=== PATIENT | male | born 1960 | race Caucasian/White ===

== ENCOUNTER 2019-12-29 17:24 | Emergency (ER) | payer OTHER ==
[~2019-12-29] VITALS: Ht 167.6 cm; Wt 73.0 kg
--- NOTE | 2019-12-29 17:26 | NUR ---
[id number], ETOH, DRINKING BACARDI AND BEER AT THE PARKING LOT, TO ER BED 11, HOOKED TO MONITOR, WARM BLANKET PROVIDED, DARNELL HOLLINS AT BEDSIDE
[2019-12-29 17:58] LABS: BASOPHILS % (AUTO) 0.2 % (0.0-2.0); EOSINOPHILS % (AUTO) 20.2 % (0.0-6.0); HEMATOCRIT 41 % (39-51); HEMOGLOBIN 13.4 g/dL (13.5-17.5); LYMPHOCYTES # (AUTO) 1.4 /CMM (0.8-4.8); MEAN CORPUSCULAR HGB CONC 33 g/dl (31.0-36.0); MEAN CORPUSCULAR VOLUME 103 fL (80-96); MONOCYTES # (AUTO) 0.7 /CMM (0.1-1.30); MONOCYTES % (AUTO) 7.9 % (2.0-12.0); NEUTROPHILS # (AUTO) 5.2 /CMM (1.8-8.9); NEUTROPHILS % (AUTO) 56.7 % (43.0-81.0); PLATELET COUNT (AUTO) 175 /CMM (150-450); RED BLOOD CELL COUNT(AUTO) 3.99 MIL/uL (4.5-6.0); WHITE BLOOD COUNT (AUTO) 9.2 K/uL (4.3-11.0)
[2019-12-29 18:05] LABS: CALCIUM, SERUM 8.9 mg/dL (8.5-10.1); CARBON DIOXIDE 23 mmol/L (21-32); CHLORIDE 107 mmol/L (98-107); CREATININE 0.9 mg/dL (0.6-1.3); GLUCOSE 104 mg/dL (74-106); POTASSIUM 4.6 mmol/L (3.5-5.1); SODIUM SERUM 142 mmol/L (136-145); UREA NITROGEN, BLOOD 16 mg/dL (7-18)
[2019-12-29 18:19] LABS: ALANINE AMINOTRANSFERASE 11 U/L (12-78); ALBUMIN 3.5 g/dL (3.4-5.0); ALCOHOL, BLOOD 114 mg/dL (0-0); ALKALINE PHOSPHATASE 94 U/L (46-116); ASPARTATE AMINOTRANSFERASE 15 U/L (15-37); BILIRUBIN,TOTAL 0.2 mg/dL (0.2-1.0); TOTAL PROTEIN, SERUM 7.3 g/dL (6.4-8.2)
[2019-12-29 18:20] LABS: SALICYLATE < 2.8 mg/dL (2.8-20.0)
--- NOTE | 2019-12-29 19:00 | NUR ---
PATIENT NOT ABLE TO PROVIDE URINE SAMPLE AT THIS TIME, REFUSED STRAIGHT CATHETER, MADE MD BENZ Addendum: 12/29/19 at 1908 by DAISY PATIENT NOT ABLE TO PROVIDE URINE SAMPLE AT THIS TIME, REFUSED STRAIGHT CATHETER, MADE DARNELL BENZ
--- NOTE | 2019-12-29 19:09 | NUR ---
REPORT GIVEN TO RUSLAN BILLINGSLEY FOR TAYL[facility]
--- NOTE | 2019-12-29 19:12 | NUR ---
PATIENT UNABLE TO PROVIDE URINE AT THIS TIME. DARNELL HERNANDEZ NOTIFIED.
--- NOTE | 2019-12-29 19:25 | NUR ---
PT IS ASLEEP. EASILY AROUSABLE THROUGH TACTILE AND VERBAL STIMULI. BREATHING EVENLY AND UNLABORED ON ROOM AIR. CONNECTED TO MONITOR. CALL LIGHT WITHIN REACH. WILL CONTINUE TO MONITOR.
[2019-12-29 19:42] LABS: EOSINOPHILS % (MANUAL) 15 % (0-4); LYMPHOCYTES % (MANUAL) 14 % (16-48); MONOCYTES % (MANUAL) 10 % (0-11.0); NEUTROPHILS % (MANUAL) 61 (42-76)
--- NOTE | 2019-12-29 21:05 | NUR ---
ROSELINE HOLLINS TALKING TO CRISTAL (SHAKER PLATE OPERATOR FOR [facility]).
--- NOTE | 2019-12-29 21:16 | NUR ---
REPORT GIVEN TO [facility] STAFF (OLAF).
--- NOTE | 2019-12-29 21:31 | NUR ---
REPORT GIVEN TO KURT FROM [facility].
--- NOTE | 2019-12-29 21:42 | NUR ---
[facility] ETA 3044
[2019-12-30 00:06] VITALS: BP 119/70
== END 2019-12-30 00:06 | disposition home or self-care (01) ==
LOC: ER 17:27
DX: F10.129 Alcohol abuse with intoxication, unspecified (principal); R41.82 Altered mental status, unspecified; Y90.5 Blood alcohol level of 100-119 mg/100 ml
CPT/HCPCS: 36415; 70450; 80048; 80076; 80307; 80329; 82962; 85025; 99285; G0480

== ENCOUNTER 2020-01-03 21:39 | Inpatient (IN) | payer OTHER ==
[~2020-01-03] VITALS: Ht 165.1 cm; Wt 73.0 kg
[2020-01-03] MEDS ORDERED: IV NS 0.9% 1,000 ML BAG IV ONE (22:00)
[2020-01-03 22:21] LABS: APPEARANCE,URINE Clear (CLEAR); BILIRUBIN,URINE Negative (NEGATIVE); BLOOD, URINE Negative Ery/uL (NEGATIVE); COLOR,URINE Yellow (YELLOW); KETONES,URINE Negative (NEGATIVE); LEUKOCYTE ESTERASE ,URINE Negative (NEGATIVE); NITRITE, URINE Negative (NEGATIVE); PH,URINE 5.5 (5.0-8.0); PROTEIN,URINE Negative (NEGATIVE); UGLUCOSE Negative (NEGATIVE); UROBILINOGEN,URINE 0.2 EU/dL (0.2)
[2020-01-03 23:16] LABS: RED BLOOD CELL COUNT(AUTO) 3.65 MIL/uL (4.5-6.0)
[2020-01-03 23:23] LABS: BASOPHILS % (AUTO) 0.4 % (0.0-2.0); EOSINOPHILS % (AUTO) 4.4 % (0.0-6.0); HEMATOCRIT 36 % (39-51); HEMOGLOBIN 12.4 g/dL (13.5-17.5); LYMPHOCYTES # (AUTO) 0.7 /CMM (0.8-4.8); LYMPHOCYTES % (AUTO) 6.1 % (20.0-44.0); MEAN CORPUSCULAR HGB CONC 34 g/dl (31.0-36.0); MEAN CORPUSCULAR VOLUME 99 fL (80-96); MONOCYTES # (AUTO) 0.8 /CMM (0.1-1.30); MONOCYTES % (AUTO) 7.3 % (2.0-12.0); NEUTROPHILS % (AUTO) 81.8 % (43.0-81.0); PLATELET COUNT (AUTO) 245 /CMM (150-450)
[2020-01-03 23:25] LABS: CALCIUM, SERUM 9.2 mg/dL (8.5-10.1); CARBON DIOXIDE 29 mmol/L (21-32); CHLORIDE 104 mmol/L (98-107); CREATININE 1.1 mg/dL (0.6-1.3); GLUCOSE 137 mg/dL (74-106); POTASSIUM 4.4 mmol/L (3.5-5.1); SODIUM SERUM 140 mmol/L (136-145); UREA NITROGEN, BLOOD 14 mg/dL (7-18)
[2020-01-03 23:30] LABS: ALANINE AMINOTRANSFERASE 14 U/L (12-78); ALBUMIN 3.5 g/dL (3.4-5.0); ALKALINE PHOSPHATASE 93 U/L (46-116); ASPARTATE AMINOTRANSFERASE 14 U/L (15-37); BILIRUBIN,DIRECT 0.1 mg/dL (0.0-0.2); BILIRUBIN,TOTAL 0.2 mg/dL (0.2-1.0); TOTAL PROTEIN, SERUM 7.6 g/dL (6.4-8.2)
--- NOTE | 2020-01-03 23:36 | NUR ---
PATIENT CAME TO ER BED 9 C/O FEVER. PT WAS BIB RA FROM [facility]. PT HAS A TEMPERATURE OF 99.9 AT ARRIVAL. AAOX2, UNABLE TO VERIFY TIME AND PLACE. NO SOB. BREATHING EVENLY AND UNLABORED. CONNECTED TO MONITOR
--- NOTE | 2020-01-04 00:57 | NUR ---
SBRT GIVEN TO POOJA BILLINGSLEY AT [facility].
--- NOTE | 2020-01-04 01:21 | NUR ---
[facility] ETA 0900.
--- NOTE | 2020-01-04 01:26 | NUR ---
[facility] STAFF GENIE CALLED BACK AND STATES THEY ARE UNABLE TO ACCEPT PT BACK UNTIL SHE IS ABLE TO SPEAK TO HER EDITOR AT [facility]. GENIE MADE AWARE OF PT MEDICALLY CLEARED AND STABLE FOR DISCHARGE.
--- NOTE | 2020-01-04 01:27 | NUR ---
[facility] , NO ANSWER.
--- NOTE | 2020-01-04 01:50 | NUR ---
PATIENT IS SLEEPING. BREATHING EVENLY AND UNLABORED ON ROOM AIR. EASILY AROUSABLE. VSS. CONNECTED TO MONITOR. SITTER AT BEDSIDE.
--- NOTE | 2020-01-04 03:18 | NUR ---
PATIENT IS ASLEEP. EASILY AROUSABLE THROUGH TACTILE AND VERBAL STIMULI. BREATHING EVENLY AND UNLABORED ON ROOM AIR. CONNECTED TO MONITOR. SITTER AT BEDSIDE.
--- NOTE | 2020-01-04 05:19 | NUR ---
PATIENT IS AWAKE, WATCHING TELEVISION. SITTER AT BEDSIDE TALKING WITH PATIENT.
--- NOTE | 2020-01-04 05:20 | NUR ---
[facility] @ , NO ANSWER.
--- NOTE | 2020-01-04 07:18 | NUR ---
ASSESSED PT ON BED AWAKE, AAOX3, NOT IN RESPIRATORY DISTRESS, V/S STABLE, KEPT RESTED AND COMFORTABLE, WILL CONTINUE TO MONITOR.
--- NOTE | 2020-01-04 07:56 | NUR ---
FOOD TRAY PROVIDED.
[2020-01-04] MEDS ORDERED: ACET-868 PO (08:51)
[2020-01-04] MEDS ORDERED: HALO5TAB8 PO (08:51)
[2020-01-04] MEDS ORDERED: LEVE250T2 PO (08:51)
[2020-01-04] MEDS ORDERED: ALPR0.5T PO (08:51)
[2020-01-04] MEDS ORDERED: DIPH25CA83 PO (08:51)
[2020-01-04] MEDS ORDERED: QUET25TA PO (08:51)
[2020-01-04] MEDS ORDERED: MULT-447 PO (08:51)
[2020-01-04] MEDS ORDERED: CHLO25TA2 PO (08:51)
[2020-01-04] MEDS ORDERED: DIVA500T4 PO (08:51)
[2020-01-04] MEDS ORDERED: THIA100T70 PO (08:51)
[2020-01-04] MEDS ORDERED: FOLI0.8T PO (08:51)
[2020-01-04] MEDS ORDERED: ONDA8TAB6 PO (08:51)
[2020-01-04] MEDS ORDERED: HALO5AMP2 IM (08:51)
[2020-01-04] MEDS ORDERED: CLOT15CR63 TP (08:51)
[2020-01-04] MEDS ORDERED: LORA-259 PO (08:53)
[2020-01-04] MEDS ORDERED: LEVO500T75 PO (08:53)
--- NOTE | 2020-01-04 09:01 | NUR ---
PAGED [facility].
--- NOTE | 2020-01-04 09:04 | NUR ---
nasal, oral, and throat swabs collected and sent to lab
--- NOTE | 2020-01-04 09:49 | NUR ---
IV LINE ESTABLISHED, L AC. G18
--- NOTE | 2020-01-04 10:50 | NUR ---
REPORT GIVEN TO JOSE CRUZ PALMER FOR TAYL[facility], PT IS ON ISOLATION.
--- NOTE | 2020-01-04 10:52 | NUR ---
NURSING SUP GAVE M/S BED 202.
--- NOTE | 2020-01-04 11:08 | NUR ---
PT IS WHEELED TO CT SCAN VIA [facility].
[2020-01-04] MEDS ORDERED: ZOLPIDEM TARTRATE 5 MG TABLET PO PRN (11:30)
[2020-01-04] MEDS ORDERED: CLOTRIMAZOLE 1% CREAM 24 GM TUBE TP PRN (11:30)
[2020-01-04] MEDS ORDERED: MAGNESIUM HYDROXIDE 30 ML UDC PO PRN (11:30)
[2020-01-04] MEDS ORDERED: ACETAMINOPHEN 325 MG TABLET PO PRN (11:30)
[2020-01-04] MEDS ORDERED: diphenhydrAMINE HCL 25 MG CAPSULE PO PRN (11:30)
[2020-01-04] MEDS ORDERED: ONDANSETRON HCL/PF 4 MG/2 ML VIAL IVP PRN (11:30)
[2020-01-04] MEDS ORDERED: HYDROCODONE/APAP 5/325MG 1 EACH TABLET PO PRN (11:30)
[2020-01-04] MEDS ORDERED: MAG HYDROX/AL HYDROX/SIMETH 30 ML UDC PO PRN (11:30)
[2020-01-04] MEDS ORDERED: CHLO25CA10 PO (11:43)
--- NOTE | 2020-01-04 11:45 | NUR ---
MS/RN NOTE THE PATIENT IS RECEIVED ON A GURNEY AND WEARING A MASK. THE PATIENT IS TRANSFERRED FROM A GURNEY TO BED. PATIENT IS ALERT AND ORIENTED X1. IN ROOM AIR AND DENIES SOB. RESPIRATION REGULAR AND UNLABORED. DENIES PAIN. THE PATIENT IN NO APPARENT DISTRESS. LAC G 18 PATENT AND SALINE LOCKED. ROOM ORIENTATION PROVIDED. BED LOW AND LOCKED. SIDE RAILS UP X3. CALL LIGHT WITHIN REACH. ISOLATION PRECAUTIONS DONE. WILL CONTINUE TO MONITOR.
[2020-01-04 12:00] VITALS: BP 133/78
[2020-01-04] MEDS: ALPRAZOLAM 0.5 MG TABLET PO SCH ×2 (12:28→18:09)
[2020-01-04] MEDS: MULTIVITAMINS,THERAGRAN 1 UDTAB TABLET PO SCH (12:28)
[2020-01-04] MEDS: FOLIC ACID 1 MG TABLET PO SCH (12:28)
[2020-01-04] MEDS: THIAMINE HCL 100 MG TABLET PO SCH (12:28)
[2020-01-04] MEDS: DIVALPROEX SODIUM 500 MG TABLET.DR PO SCH ×2 (12:28→21:16)
--- NOTE | 2020-01-04 14:20 | NUR ---
rn notes Staff nurse heard negative pressure room alarm going off. when checked, patient was out of the room. instructed the patient to go back inside but patient seems confused. Primary nurse Lou, with appropriate PPE, assisted patient back to the room.
--- NOTE | 2020-01-04 14:30 | NUR ---
MS/RN NOTE ASSISTED THE PATIENT TO GET BACK IN HIS ROOM AND BED AFTER WEARING MY PPE. OFFERED MY ASSISTANCE TO THE PATIENT BUT THE PATIENT COULD NOT REMEMBER WHY DID HE GOT OUT OF BED AND WHAT DID HE WANT. REMINDED THE PATIENT SAFETY AND ISOLATION MEASURES, ENCOURAGED HIM TO PRESS THE CALL LIGHT FOR ASSISTANCE. THE CALL LIGHT WITHIN REACH. WILL CONTINUE TO MONITOR.
[2020-01-04 15:00] VITALS: BP 135/80
--- NOTE | 2020-01-04 16:05 | NUR ---
MS/RN NOTE RECEIVED WOUND CONSULT ORDER FROM ROSE SOTELO. NOTED AND CARRIED OUT.
--- NOTE | 2020-01-04 16:28 | NUR ---
RN NOTE HEARED NEGATIVE PRESSURE ROOM ALARM RINGING. CHECKED IMMEDIATELY AND NOTED THE PATIENT OUT FROM THE ROOM, STANDING IN FROM OF HIS DOOR IN THE HALLWAY. INSTRUCTED THE PATIENT TO GO BACK INSIDE THE ROOM. HOWEVER, THE PATIENT IS CONFUSED AND WAS ABLE TO FOLLOW THE GIVEN INSTRUCTIONS AFTER REPEATING IT FEW TIMES. RIGHT AFTER I WORE PPE AND WENT TO THE PATIENT`S ROOM TO ASSIST THE PATIENT TO SAFETY GET IN BED. UPON ASKING THE PATIENT DID NOT REMEMBER WHAT DID HE WANT WHAT WAS THE REASON FOR GETTING OUT FROM THE ROOM. CALL LIGHT STILL WITHIN REACH. INSTRUCTED THE PATIENT TO PRESS THE CALL LIGHT FOR ASSISTANCE AND NOT TO GET OUT OF BED. THE PATIENT VERBALIZED UNDERSTANDING BUT STILL NOTED TO BE CONFUSED.
[2020-01-04] MEDS ORDERED: Medication Not On Formulary EA (Chlorthalidone 25 MG) PO SCH (17:00)
[2020-01-04] MEDS: LEVETIRACETAM (250 MG) 250 MG TABLET PO SCH (18:09)
[2020-01-04] MEDS: CHLORDIAZEPOXIDE HCL 25 MG CAPSULE PO SCH (18:09)
[2020-01-04 18:21] VITALS: BP 132/70
--- NOTE | 2020-01-04 18:21 | NUR ---
MS/RN NOTE THE PATIENT IS NOTED WITH TEMP 100.6F. THE PATIENT IS GIVEN TYLENOL 650MG PO. WILL CONTINUE TO MONITOR.
[2020-01-04 19:00] VITALS: BP 131/76
--- NOTE | 2020-01-04 19:00 | NUR ---
MS/RN NOTE TEMPERATURE IS AT 98.9. THE PATIENT IN NO APPARENT DISTRESS.
--- NOTE | 2020-01-04 19:15 | NUR ---
MS BILLINGSLEY NOTES: RECEIVED PATIENT Patient in bed, awake. On room air, tolerating well. Independent with mobility, denies pain. Maintained safety. Contact, Droplet precaution, PPE utilized. Addendum: 01/05/20 at 0648 by ANGELA DANIELS RN Notes continue below: Remains on Airborne isolation, PPE utilized.
--- NOTE | 2020-01-04 19:25 | NUR ---
MS/RN NOTE THE PATIENT IS ALERT AND ORIENTED X1. ABLE TO MAKE NEEDS KNOWN VERBALLY. THE RESIDENT DENIES PAIN. PATIENT DENIES SORE THROAT, DENIES SOB OR ANY DISTRESS. RESPIRATION REGULAR AND UNLABORED. OXYGEN SATURATION IN ROOM AIR IS AT 95%. THE PATIENT IS AFEBRILE AT THIS TIME. LAC G 18 PATENT AND SALINE LOCKED. ISOLATION MAINTAINED PER ORDER. THE PATIENT IN STABLE CONDITION. BED LOW AND LOCKED. SIDE RAILS UP X3. CALL LIGHT WITHIN REACH. WILL ENDORSE TO RACE ENGINE BUILDER.
[2020-01-04 20:10] VITALS: BP 96/78
[2020-01-04 20:32] VITALS: BP 96/78
[2020-01-04] MEDS: HALOPERIDOL 5 MG TABLET PO SCH (21:17)
[2020-01-04] MEDS: QUETIAPINE FUMARATE 25 MG TABLET PO SCH (21:17)
--- NOTE | 2020-01-05 07:04 | NUR ---
MS RN: REPORT Patient in bed, stable on room air, denies shortness of breath, no cough. Afebrile overnight, denies pain. RSV non reactive, Rapid Rapid influenza screen negative, UA negative, Urine cx pending. Compliant with medication. Remains on Airborne contact precaution, PPE utilized. [facility] visitor services representative pending arrival to the hospital for possible COVID-19 testing, per House sup. JOSE CRUZ Moreno to follow up with [facility] visitor services representative pending arrival to the hospital. Will endorse to Oncoming RN.
[2020-01-05 08:00] VITALS: BP 118/71
--- NOTE | 2020-01-05 08:00 | NUR ---
MS RN OPENING NOTES Received Patient awake and resting in bed. A/O x 1. VS stable with no acute distress. Breathing even and unlabored on room air with no respiratory distress. Denies pain. No signs and symptoms of pain. 18g PIV on LAC clean, intact, patent and flushing well. Isolation precautions in place. Safety precautions in place. Bed locked and set to lowest position with side rails x 2 up. All needs rendered at this time. Call light within reach. Will continue to monitor.
[2020-01-05] MEDS: CHLORDIAZEPOXIDE HCL 25 MG CAPSULE PO SCH ×2 (09:39→18:07)
[2020-01-05] MEDS: PANTOPRAZOLE 40 MG TABLET.DR PO SCH (09:39)
[2020-01-05] MEDS: HALOPERIDOL 5 MG TABLET PO SCH ×2 (09:39→20:35)
[2020-01-05] MEDS: LEVETIRACETAM (250 MG) 250 MG TABLET PO SCH ×2 (09:39→18:07)
[2020-01-05] MEDS: FOLIC ACID 1 MG TABLET PO SCH (09:39)
[2020-01-05] MEDS: DIVALPROEX SODIUM 500 MG TABLET.DR PO SCH ×2 (09:39→20:36)
[2020-01-05] MEDS: QUETIAPINE FUMARATE 25 MG TABLET PO SCH ×2 (09:40→20:35)
[2020-01-05] MEDS: MULTIVITAMINS,THERAGRAN 1 UDTAB TABLET PO SCH (09:40)
[2020-01-05] MEDS: ALPRAZOLAM 0.5 MG TABLET PO SCH ×3 (09:41→18:07)
[2020-01-05] MEDS: THIAMINE HCL 100 MG TABLET PO SCH (09:41)
[2020-01-05 13:04] LABS: BASOPHILS % (AUTO) 0.2 % (0.0-2.0); HEMATOCRIT 39 % (39-51); LYMPHOCYTES % (AUTO) 17.5 % (20.0-44.0); MEAN CORPUSCULAR HGB CONC 33 g/dl (31.0-36.0); MEAN CORPUSCULAR VOLUME 102 fL (80-96); MONOCYTES # (AUTO) 0.5 /CMM (0.1-1.30); MONOCYTES % (AUTO) 8.5 % (2.0-12.0); NEUTROPHILS # (AUTO) 2.9 /CMM (1.8-8.9); NEUTROPHILS % (AUTO) 48.7 % (43.0-81.0); PLATELET COUNT (AUTO) 214 /CMM (150-450); RED BLOOD CELL COUNT(AUTO) 3.87 MIL/uL (4.5-6.0); WHITE BLOOD COUNT (AUTO) 5.9 K/uL (4.3-11.0)
[2020-01-05 13:06] LABS: EOSINOPHILS % (AUTO) 25.1 % (0.0-6.0)
[2020-01-05 13:19] LABS: ALBUMIN 3.1 g/dL (3.4-5.0); BILIRUBIN,TOTAL 0.1 mg/dL (0.2-1.0); CALCIUM, SERUM 8.7 mg/dL (8.5-10.1); CREATININE 0.9 mg/dL (0.6-1.3); MAGNESIUM 1.7 mg/dL (1.8-2.4); PHOSPHORUS 3.3 mg/dL (2.5-4.9); POTASSIUM 4.4 mmol/L (3.5-5.1); TOTAL PROTEIN, SERUM 7.4 g/dL (6.4-8.2)
[2020-01-05 13:25] LABS: EOSINOPHILS % (MANUAL) 27 % (0-4); LYMPHOCYTES % (MANUAL) 18 % (16-48); MONOCYTES % (MANUAL) 3 % (0-11.0); NEUTROPHILS % (MANUAL) 52 (42-76)
[2020-01-05 16:00] VITALS: BP 118/77
--- NOTE | 2020-01-05 16:53 | NUR ---
MS RN NOTES Per Rj EXHIBIT ARTIST, notified Nursing Building Construction Teacher to follow up with Jenny BILLINGSLEY in regards to following up with the [facility] and the specimen collection for possible Schumacher Virus from Patient. Per Building Construction Teacher, she will follow up with Jenny. Patient in stable condition. Will continue to monitor.
--- NOTE | 2020-01-05 17:06 | NUR ---
MS RN NOTES Spoke with Nursing Telegraph Office Manager on the update for plan of care to Patient. Notified Rj INOCULATOR. NNO. Patient in stable condition. Will continue to monitor.
--- NOTE | 2020-01-05 19:20 | NUR ---
MS RN CLOSING NOTES Patient awake and watching TV in bed. A/O x 1. VS stable with no acute distress. Breathing even and unlabored on room air with no respiratory distress. Denies pain. No signs and symptoms of pain. 18g PIV on LAC clean, intact, patent and flushing well. Isolation precautions in place. Safety precautions in place. Bed locked and set to lowest position with side rails x 2 up. All needs rendered at this time. Call light within reach. Will continue to monitor.
--- NOTE | 2020-01-05 19:21 | NUR ---
MS RN OPENING NOTES Received patient A/O x1, awake on bed watching TV. Pt denies any discomfort at this time. On airborne/droplet precautions, observed by all HCPs. Kept on bed clean, dry and comfortable. Call light within easy reach. Will continue to monitor accordingly.
[2020-01-05 20:00] VITALS: BP 123/82
[2020-01-05 23:57] LABS: THYROID STIMULATING HORMONE 2.422 uIU/mL (0.358-3.74)
--- NOTE | 2020-01-06 00:38 | NUR ---
MS RN NOTES Patient claimed he was given anti-seizure meds by the police. Reorient patient. Patient insisted to go back where he came from. Explained to patient he is at [facility] but patient insisted his own thoughts. Divert patient's attention to TV. Will continue to monitor accordingly.
[2020-01-06] MEDS: LORAZEPAM 1 MG TABLET PO PRN (00:43)
--- NOTE | 2020-01-06 06:30 | NUR ---
MS RN CLOSING NOTES Patient asleep, easily awaken. On RA, no SOB/respiratory distress noted. Patient noted with confusion. All nursing needs attended. Due meds given as ordered. Kept on bed clean, dry and comfortable. On fall and aspiration precautions. Call light within easy reach. Endorsed.
--- NOTE | 2020-01-06 07:30 | NUR ---
M/S RN OPENING NOTES RECEIVED PT ON BED, A/OX 1 WITH CONFUSION AND EPISODES OF NON COMPLIANT. ON DROPLET/AIRBORNE ISOLATION. RESPIRATION EVEN AND NON LABORED WITH NO ACUTE RESPIRATORY DISTRESS. ABD SOFT AND NON DISTENDED WITH ACTIVE BOWEL SOUNDS. DENIES PAIN AND DISCOMFORT. SKIN WARM TO TOUCH AND DRY. IV SITE AT LAC #18, NO S/SX OF INFILTRATION. CALL LIGHT WITHIN REACH. BED LOCKED POSITION, SR X2 UP FOR SAFETY. WILL CONTINUE TO MONITOR.
[2020-01-06] MEDS: PANTOPRAZOLE 40 MG TABLET.DR PO SCH (07:42)
--- NOTE | 2020-01-06 08:35 | NUR ---
M/S RN NOTES PT SEEN AND EVALUATED BY AZRA ROSE. WAITING FOR ID FOR CLEARANCE
[2020-01-06] MEDS: MULTIVITAMINS,THERAGRAN 1 UDTAB TABLET PO SCH (09:20)
[2020-01-06] MEDS: DIVALPROEX SODIUM 500 MG TABLET.DR PO SCH ×2 (09:20→21:38)
[2020-01-06] MEDS: HALOPERIDOL 5 MG TABLET PO SCH ×2 (09:20→21:38)
[2020-01-06] MEDS: QUETIAPINE FUMARATE 25 MG TABLET PO SCH ×2 (09:20→21:38)
[2020-01-06] MEDS: FOLIC ACID 1 MG TABLET PO SCH (09:20)
[2020-01-06] MEDS: ALPRAZOLAM 0.5 MG TABLET PO SCH ×3 (09:20→16:57)
[2020-01-06] MEDS: LEVETIRACETAM (250 MG) 250 MG TABLET PO SCH ×2 (09:20→16:57)
[2020-01-06] MEDS: CHLORDIAZEPOXIDE HCL 25 MG CAPSULE PO SCH ×2 (09:20→16:57)
[2020-01-06] MEDS: THIAMINE HCL 100 MG TABLET PO SCH (09:20)
[2020-01-06 10:01] LABS: BASOPHILS % (AUTO) 0.2 % (0.0-2.0); EOSINOPHILS % (AUTO) 20.8 % (0.0-6.0); HEMATOCRIT 40 % (39-51); HEMOGLOBIN 13.4 g/dL (13.5-17.5); LYMPHOCYTES % (AUTO) 12.8 % (20.0-44.0); MEAN CORPUSCULAR HGB CONC 34 g/dl (31.0-36.0); MEAN CORPUSCULAR VOLUME 101 fL (80-96); MONOCYTES # (AUTO) 0.6 /CMM (0.1-1.30); MONOCYTES % (AUTO) 7.9 % (2.0-12.0); NEUTROPHILS # (AUTO) 4.5 /CMM (1.8-8.9); NEUTROPHILS % (AUTO) 58.3 % (43.0-81.0); PLATELET COUNT (AUTO) 230 /CMM (150-450); RED BLOOD CELL COUNT(AUTO) 3.94 MIL/uL (4.5-6.0); WHITE BLOOD COUNT (AUTO) 7.8 K/uL (4.3-11.0)
[2020-01-06 10:06] LABS: CREATININE 0.8 mg/dL (0.6-1.3); POTASSIUM 3.9 mmol/L (3.5-5.1)
[2020-01-06 11:30] LABS: BAND % (MANUAL) 2 % (0.0-5.0); EOSINOPHILS % (MANUAL) 21 % (0-4); LYMPHOCYTES % (MANUAL) 9 % (16-48); MONOCYTES % (MANUAL) 5 % (0-11.0); NEUTROPHILS % (MANUAL) 63 (42-76)
--- NOTE | 2020-01-06 14:05 | NUR ---
M/S RN NOTES PT ATTEMPTED TO GET OUT OF BED, WANTED TO WASH HANDS WHEN ASKED. PPE UTILIZED. ASSISTED PATIENT NEEDS. PLACED BACK TO BED, RE-ORIENT WITH UTILIZING CALL LIGHT FOR ASSISTANCE. WILL CONTINUE TO MONITOR
--- NOTE | 2020-01-06 14:22 | NUR ---
M/S RN NOTES CALLED ARA (COMMERCIAL SOLAR SALES CONSULTANT) FROM [facility] FOR CONSERVATOR INFORMATION. SHE WILL CALL TOMORROW (01/07/20) AT [facility] TO PROVIDE THE INFORMATION. SHE IS AWARE OF DIRECT CONTACT LINE FOR INFORMATION
[2020-01-06 16:00] VITALS: BP 107/64
--- NOTE | 2020-01-06 17:51 | NUR ---
M/S RN NOTES PROVIDED HYGIENE TO PATIENT WITH WEI NICHOLSON, TOLERATED WELL
--- NOTE | 2020-01-06 18:44 | NUR ---
M/S RN CLOSING NOTES PT A/OX1, EPISODES OF CONFUSION AND DELUSION (STATING HE DOESN'T WANT TO STAY HERE AND STAY IN THE [place] FLOATING). PT NOT IN ACUTE RESPIRATORY DISTRESS. DENIES PAIN AND DISCOMFORT. SKIN WARM TO TOUCH AND DRY. ABD SOFT AND NON DISTENDED WITH ACTIVE BOWEL SOUNDS, URINAL ON BEDSIDE. PT ON AIRBORNE ISOLATION, PPE UTILIZED. CALL LIGHT WITHIN REACH. BED IN LOCKED POSITION, BED ALARM ON, SR X2 UP FOR SAFETY, IV SITE AT LEFT AC #18, PATENT IN FLUSHING, NO S/SX OF INFILTRATION. ENDORSED PT CARE TO NEXT SHIFT.
--- NOTE | 2020-01-06 19:05 | NUR ---
MS RN NOTES RECEIVED PT IN BED AND AWAKE. PT A/OX1 WITH PERIODS OF CONFUSION. RESPIRATIONS EVEN AND UNLABORED WITH NO S/S OF ACUTE DISTRESS OR SOB NOTED. NO COMPLAINTS OF PAIN AT THIS TIME. PT ON AIRBORNE ISOLATION/CONTACT, PPE UTILIZED. SAFETY MEASURES IN PLACE WITH BED IN LOWEST LOCKED POSITION WITH SIDE RAILS UP X3. CALL LIGHT WITHIN REACH. WILL CONTINUE TO MONITOR.
--- NOTE | 2020-01-06 19:30 | NUR ---
MS RN NOTES PT REFUSED PHOTOS AT THIS TIME. WILL CONTINUE TO MONITOR.
[2020-01-06 20:00] VITALS: BP 137/68
[2020-01-07] MEDS: LORAZEPAM 1 MG TABLET PO PRN (02:01)
[2020-01-07 06:32] LABS: BASOPHILS % (AUTO) 0.2 % (0.0-2.0); EOSINOPHILS % (AUTO) 8.9 % (0.0-6.0); HEMATOCRIT 36 % (39-51); HEMOGLOBIN 12.2 g/dL (13.5-17.5); LYMPHOCYTES # (AUTO) 1.2 /CMM (0.8-4.8); LYMPHOCYTES % (AUTO) 11.8 % (20.0-44.0); MEAN CORPUSCULAR HGB CONC 34 g/dl (31.0-36.0); MEAN CORPUSCULAR VOLUME 99 fL (80-96); MONOCYTES # (AUTO) 0.8 /CMM (0.1-1.30); MONOCYTES % (AUTO) 8.1 % (2.0-12.0); NEUTROPHILS # (AUTO) 7.2 /CMM (1.8-8.9); PLATELET COUNT (AUTO) 239 /CMM (150-450); RED BLOOD CELL COUNT(AUTO) 3.64 MIL/uL (4.5-6.0); WHITE BLOOD COUNT (AUTO) 10.1 K/uL (4.3-11.0)
[2020-01-07 06:51] LABS: CALCIUM, SERUM 8.4 mg/dL (8.5-10.1); CREATININE 0.8 mg/dL (0.6-1.3); POTASSIUM 3.4 mmol/L (3.5-5.1)
--- NOTE | 2020-01-07 06:56 | NUR ---
MS RN NOTES PT IN BED AND AWAKE. PT A/O X1 WITH PERIODS OF CONFUSION. RESPIRATIONS EVEN AND UNLABORED WITH NO S/S OF ACUTE DISTRESS OR SOB NOTED THROUGHOUT SHIFT. NO COMPLAINTS OF PAIN AT THIS TIME. PT ON AIRBORNE ISOLATION/CONTACT, PPE UTILIZED. PT KEPT CLEAN, DRY, AND COMFORTABLE. SAFETY MEASURES IN PLACE WITH BED IN LOWEST LOCKED POSITION WITH SIDE RAILS UP X3. CALL LIGHT WITHIN REACH. WILL ENDORSE TO ONCOMING NURSE FOR TAYLOR.
[2020-01-07] MEDS: PANTOPRAZOLE 40 MG TABLET.DR PO SCH (07:30)
--- NOTE | 2020-01-07 07:30 | NUR ---
MS RN NOTES RECEIVED PATIENT STANDING UP BESIDE THE BED, PATIENT TRYING TO GET OUT OF ROOM, REDIRECTED BUT PATIENT IS COMBATIVE AND AGGRESSIVE. PT A/O X1. NO COMPLAIN OF PAIN AT THIS TIME, NO SOB NOTED AT THIS TIME. ON AIRBORNE ISOLATION/CONTACT PRECAUTION, PPE UTILIZED. SAFETY MEASURES IN PLACE WITH BED IN LOWEST LOCKED POSITION WITH SIDE RAILS UP X3. CALL LIGHT WITHIN REACH. WILL CONTINUE TO MONITOR.
[2020-01-07] MEDS ORDERED: POTASSIUM CHLORIDE 20 MEQ TAB.PRT.SR PO ONE (09:00)
[2020-01-07] MEDS: QUETIAPINE FUMARATE 25 MG TABLET PO SCH (10:01)
[2020-01-07] MEDS: CHLORDIAZEPOXIDE HCL 25 MG CAPSULE PO SCH (10:01)
[2020-01-07] MEDS: FOLIC ACID 1 MG TABLET PO SCH (10:01)
[2020-01-07] MEDS: LEVETIRACETAM (250 MG) 250 MG TABLET PO SCH (10:01)
[2020-01-07] MEDS: DIVALPROEX SODIUM 500 MG TABLET.DR PO SCH (10:01)
[2020-01-07] MEDS: ALPRAZOLAM 0.5 MG TABLET PO SCH ×2 (10:01→13:00)
[2020-01-07] MEDS: HALOPERIDOL 5 MG TABLET PO SCH (10:01)
[2020-01-07] MEDS: THIAMINE HCL 100 MG TABLET PO SCH (10:02)
[2020-01-07] MEDS: MULTIVITAMINS,THERAGRAN 1 UDTAB TABLET PO SCH (10:02)
[2020-01-07 15:30] VITALS: BP 111/60
--- NOTE | 2020-01-07 15:30 | NUR ---
RN DISCHARGED NOTES PATIENT DISCHARGED IN STABLE CONDITION. A/O X1, CONFUSED AND NOTED WITH AGGRESSIVE AND COMBATIVE BEHAVIOR. V/S TAKEN, STABLE AND RECORDED. PATIENT'S IV REMOVED AND APPLIED PRESSURE DRESSINGS. PATIENT REFUSED SKIN ASSESSMENT AND PICTURES. NAME ARM BAND REMOVED. ALL BELONGINGS SIGNED AND CHECKED. REPORT GIVEN TO JOSE CRUZ GAY SUPERVISOR PAINTING SHIPYARD AT [facility]. SPOKE TO ARA, TAKE OUT WAITER/WAITRESS. PATIENT LEFT UNIT VIA GURNEY WITH 2 AMBULANCE STAFF, NO SIGNS OF DISTRESS NOTED. CHARGE NURSE AWARE OF DISCHARGED.
== END 2020-01-07 15:30 | DRG 139 ==
LOC: ER 21:41 → MEDSG2 01-04 10:59
PROVIDERS: ADMIT Nurse Practitioner Acute Care; ATTEND Nurse Practitioner Acute Care
DX: J12.9 Viral pneumonia, unspecified (principal); K86.1 Other chronic pancreatitis; G40.909 Epilepsy, unspecified, not intractable, without status epilepticus; F31.9 Bipolar disorder, unspecified; Z87.820 Personal history of traumatic brain injury; D53.9 Nutritional anemia, unspecified; F10.20 Alcohol dependence, uncomplicated; E87.6 Hypokalemia; L40.9 Psoriasis, unspecified; D63.8 Anemia in other chronic diseases classified elsewhere; R73.9 Hyperglycemia, unspecified
CPT/HCPCS: 36415; 71045-TC; 71250-TC; 80048-TC; 80053-TC; 80061-TC; 80076-TC; 81000-TC; 83605-TC; 83735-TC; 84100-TC; 84443-TC; 84484-TC; 85025-TC; 85730-TC; 87040-TC; 87081-TC; 87086-TC; G0378; G0480; J7030; Q0163

== ENCOUNTER 2021-03-03 13:45 | Emergency (ER) | payer OTHER ==
[~2021-03-03] VITALS: Ht 165.1 cm; Wt 75.7 kg
[~2021-03-03 13:45] MED LIST: ACET-868 PO; ALPR0.5T PO; CHLO25CA10 PO; CLOT15CR27 TP; DIPH25CA83 PO; DIVA500T4 PO; FOLI0.8T3 PO; HALO5AMP2 IM; HALO5TAB8 PO; LEVE250T2 PO; LORA-259 PO; MULT-447 PO; ONDA8TAB6 PO; QUET25TA PO; THIA100T70 PO
--- NOTE | 2021-03-03 14:00 | NUR ---
SHAMAR VELASCO "Was called by [employer] Resident eloped was filed for missing person found in liquor store near the facility". The patient denies pain. In room air and denies SOB. Respiration regular and unlabored. The patient is alert and oriented x2. Warm blanket provided for comfort. Will continue to monitor the patient.
[2021-03-03] MEDS ORDERED: TRAM50TA2 PO (14:25)
[2021-03-03] MEDS ORDERED: CHLO473M5 MM (14:25)
[2021-03-03] MEDS ORDERED: CHOL100062 PO (14:25)
[2021-03-03 15:00] LABS: BASOPHILS % (AUTO) 0.2 % (0.0-2.0); EOSINOPHILS % (AUTO) 4.7 % (0.0-6.0); HEMATOCRIT 41 % (39-51); HEMOGLOBIN 13.6 g/dL (13.5-17.5); LYMPHOCYTES % (AUTO) 18.9 % (20.0-44.0); MEAN CORPUSCULAR HGB CONC 33 g/dl (31.0-36.0); MEAN CORPUSCULAR VOLUME 102 fL (80-96); MONOCYTES # (AUTO) 0.6 /CMM (0.1-1.30); MONOCYTES % (AUTO) 12.1 % (2.0-12.0); NEUTROPHILS # (AUTO) 3.4 /CMM (1.8-8.9); NEUTROPHILS % (AUTO) 64.1 % (43.0-81.0); PLATELET COUNT (AUTO) 173 /CMM (150-450); RED BLOOD CELL COUNT(AUTO) 4.01 MIL/uL (4.5-6.0); WHITE BLOOD COUNT (AUTO) 5.2 K/uL (4.3-11.0)
[2021-03-03 15:16] LABS: CALCIUM, SERUM 9.2 mg/dL (8.5-10.1); CARBON DIOXIDE 27 mmol/L (21-32); CHLORIDE 104 mmol/L (98-107); CREATININE 0.9 mg/dL (0.6-1.3); GLUCOSE 113 mg/dL (74-106); POTASSIUM 4.2 mmol/L (3.5-5.1); SODIUM SERUM 140 mmol/L (136-145); UREA NITROGEN, BLOOD 17 mg/dL (7-18)
[2021-03-03 15:23] LABS: ALANINE AMINOTRANSFERASE 19 U/L (12-78); ALBUMIN 3.8 g/dL (3.4-5.0); ALCOHOL, BLOOD 6 mg/dL (0-0); ALKALINE PHOSPHATASE 71 U/L (46-116); ASPARTATE AMINOTRANSFERASE 15 U/L (15-37); BILIRUBIN,DIRECT 0.1 mg/dL (0.0-0.2); BILIRUBIN,TOTAL 0.2 mg/dL (0.2-1.0); TOTAL PROTEIN, SERUM 7.5 g/dL (6.4-8.2)
[2021-03-03 15:24] LABS: ACETAMINOPHEN < 0 ug/ml (10-30)
--- NOTE | 2021-03-03 15:57 | NUR ---
[facility] [address] [place] [address] Addendum: 03/03/21 at 1617 by MYKEL Report given to nurse Penny
[2021-03-03] MEDS ORDERED: LEVETIRACETAM (250 MG) 250 MG TABLET PO ONE ×2 (16:00→16:03)
[2021-03-03] MEDS ORDERED: DIVALPROEX SODIUM 500 MG TABLET.DR PO ONE ×2 (16:00→16:03)
--- NOTE | 2021-03-03 16:00 | NUR ---
FORM[facility], [facility]. OUR NPI IS [id number] [facility] TRANSIT ETA 5-7 DAYS?
--- NOTE | 2021-03-03 16:26 | NUR ---
[facility] ambulance ETA 630pm
--- NOTE | 2021-03-03 19:08 | NUR ---
REPORT GIVEN TO EMS FOR PT TRANSFER BACK TO [facility].
[2021-03-03 19:09] VITALS: BP 129/72
== END 2021-03-03 19:10 ==
LOC: ER 13:48
DX: F10.10 Alcohol abuse, uncomplicated (principal); G40.909 Epilepsy, unspecified, not intractable, without status epilepticus; F31.9 Bipolar disorder, unspecified; G89.29 Other chronic pain; M54.5 Low back pain; Y90.2 Blood alcohol level of 40-59 mg/100 ml; Z98.890 Other specified postprocedural states; Z88.0 Allergy status to penicillin; Z79.899 Other long term (current) drug therapy
CPT/HCPCS: 36415; 80048-TC; 80076-TC; 80164-TC; 85025-TC; G0480

== ENCOUNTER 2022-04-19 06:20 | Emergency (ER) | payer OTHER ==
[~2022-04-19] VITALS: Ht 172.7 cm; Wt 76.2 kg
[~2022-04-19 06:20] MED LIST changes: -CHLO25CA10 PO; +CHLO473M5 MM; +CHOL100062 PO; -CLOT15CR27 TP; +TRAM50TA2 PO
--- NOTE | 2022-04-19 06:24 | NUR ---
SEEN BY DR HINES AT BEDSIDE.
--- NOTE | 2022-04-19 06:25 | NUR ---
DARLINE Layne FROM [facility] FOR FOUND PT ON THE FLOOR NEXT TO HIS BED. POSITIONED COMFORTABLY IN BED. PATIENT IS AAOX2. CAME WITH REDNESS ON LEFT SIDE OF FACE. WITH IV CANNULA G20 ON LEFT HAND. VITALS CHECKED. ATTACHED TO MONITOR. -SOB, -CP.
--- NOTE | 2022-04-19 06:49 | NUR ---
CORRECTIONAL COUNSELOR/CASE MANAGER AT BEDSIDE
--- NOTE | 2022-04-19 06:54 | NUR ---
SPOKE TO JASMIN AT THE FACILITY, PER JASMIN PATIENT HAD AN EPISODE OF SEIZURE AT THE FACILITY. DR HINES MADE AWARE
--- NOTE | 2022-04-19 07:40 | NUR ---
LAB AT BEDSIDE
[2022-04-19 07:54] LABS: BASOPHILS % (AUTO) 0.2 % (0.0-2.0); EOSINOPHILS % (AUTO) 3.9 % (0.0-6.0); HEMATOCRIT 40 % (39-51); HEMOGLOBIN 13.6 g/dL (13.5-17.5); LYMPHOCYTES # (AUTO) 0.9 K/uL (0.8-4.8); LYMPHOCYTES % (AUTO) 13.5 % (20.0-44.0); MEAN CORPUSCULAR HGB CONC 34 g/dl (31.0-36.0); MEAN CORPUSCULAR VOLUME 100 fL (80-96); MONOCYTES # (AUTO) 0.6 K/uL (0.1-1.30); MONOCYTES % (AUTO) 8.4 % (2.0-12.0); NEUTROPHILS # (AUTO) 5.1 K/uL (1.8-8.9); PLATELET COUNT (AUTO) 185 K/uL (150-450); RED BLOOD CELL COUNT(AUTO) 4.04 MIL/uL (4.5-6.0); WHITE BLOOD COUNT (AUTO) 6.9 K/uL (4.3-11.0)
[2022-04-19] MEDS ORDERED: FAMO20TA8 PO (08:54)
[2022-04-19] MEDS ORDERED: CLOT15CR27 TP (08:54)
[2022-04-19] MEDS ORDERED: GUAI100S11 PO (08:54)
[2022-04-19 09:27] LABS: CALCIUM, SERUM 9.3 mg/dL (8.5-10.1); CARBON DIOXIDE 26 mmol/L (21-32); CHLORIDE 104 mmol/L (98-107); GLUCOSE 112 mg/dL (74-106); POTASSIUM 4.2 mmol/L (3.5-5.1); SODIUM SERUM 140 mmol/L (136-145); UREA NITROGEN, BLOOD 13 mg/dL (7-18)
--- NOTE | 2022-04-19 09:41 | NUR ---
called [facility] and set up [facility] transport eta 1000
--- NOTE | 2022-04-19 09:47 | NUR ---
REPORT GIVEN TO MARY FOR TAYLOR
[2022-04-19 10:00] LABS: ALANINE AMINOTRANSFERASE 15 U/L (12-78); ALBUMIN 3.7 g/dL (3.4-5.0); ALKALINE PHOSPHATASE 84 U/L (46-116); ASPARTATE AMINOTRANSFERASE 16 U/L (15-37); TOTAL PROTEIN, SERUM 7.3 g/dL (6.4-8.2)
[2022-04-19 10:12] VITALS: BP 121/66
[2022-04-19 10:15] LABS: BILIRUBIN,DIRECT 0.1 mg/dL (0.0-0.2); BILIRUBIN,TOTAL 0.3 mg/dL (0.2-1.0)
--- NOTE | 2022-04-19 10:41 | NUR ---
[facility] TRANSPORTED FROM EMERGENCY DEPARTMENT TO HIS FACILITY IN STABLE CONDITION.
== END 2022-04-19 10:43 | disposition home or self-care (01) ==
LOC: ER 06:22
DX: G40.409 Other generalized epilepsy and epileptic syndromes, not intractable, without status epilepticus (principal); Z86.69 Personal history of other diseases of the nervous system and sense organs; Z88.0 Allergy status to penicillin; Z79.899 Other long term (current) drug therapy
CPT/HCPCS: 36415; 70450-TC; 71045-TC; 80048-TC; 80076-TC; 82962-TC; 83605-TC; 84484-TC; 85025-TC; 87040-TC; G0480

== ENCOUNTER 2023-04-01 17:15 | Inpatient (IN) | payer OTHER ==
[~2023-04-01] VITALS: Ht 167.6 cm; Wt 68.5 kg
[~2023-04-01 17:15] MED LIST changes: -CHLO473M5 MM; +CLOT15CR27 TP; -DIVA500T4 PO; +FAMO20TA8 PO; +GUAI100S11 PO; -HALO5AMP2 IM
--- NOTE | 2023-04-01 17:25 | NUR ---
PT CAME FROM [facility] CARE BY STAFF FOR PLACEMENT IN [facility] PT [facility]
--- NOTE | 2023-04-01 17:30 | NUR ---
SEEN BY DR. VELÁSQUEZ
--- NOTE | 2023-04-01 17:40 | NUR ---
BLOOD DROW BY LAB TACH
--- NOTE | 2023-04-01 18:00 | NUR ---
SACHA SWAB SENT TO LAB
[2023-04-01 18:31] LABS: BASOPHILS # (AUTO) 0.1 K/uL (0.0-0.2); BASOPHILS % (AUTO) 1.3 % (0.0-2.0); EOSINOPHILS % (AUTO) 2.6 % (0.0-6.0); HEMATOCRIT 39 % (39-51); HEMOGLOBIN 12.9 g/dL (13.5-17.5); LYMPHOCYTES # (AUTO) 1.3 K/uL (0.8-4.8); LYMPHOCYTES % (AUTO) 21.9 % (20.0-44.0); MEAN CORPUSCULAR HGB CONC 34 g/dl (31.0-36.0); MEAN CORPUSCULAR VOLUME 98 fL (80-96); MONOCYTES # (AUTO) 0.6 K/uL (0.1-1.30); MONOCYTES % (AUTO) 10.1 % (2.0-12.0); NEUTROPHILS # (AUTO) 3.8 K/uL (1.8-8.9); NEUTROPHILS % (AUTO) 64.1 % (43.0-81.0); PLATELET COUNT (AUTO) 171 K/uL (150-450); RED BLOOD CELL COUNT(AUTO) 3.92 MIL/uL (4.5-6.0); WHITE BLOOD COUNT (AUTO) 5.9 K/uL (4.3-11.0)
[2023-04-01 18:43] LABS: ALBUMIN 3.7 g/dL (3.4-5.0); BILIRUBIN,DIRECT 0.1 mg/dL (0.0-0.2); BILIRUBIN,TOTAL 0.3 mg/dL (0.2-1.0); CALCIUM, SERUM 9.2 mg/dL (8.5-10.1); CREATININE 0.9 mg/dL (0.6-1.3); POTASSIUM 4.3 mmol/L (3.5-5.1); TOTAL PROTEIN, SERUM 7.3 g/dL (6.4-8.2)
[2023-04-01] MEDS ORDERED: DIVA-78 PO (18:45)
[2023-04-01] MEDS ORDERED: CHOL400T58 PO (18:45)
[2023-04-01] MEDS ORDERED: TROL35.4 TP (18:45)
[2023-04-01] MEDS ORDERED: LIDO76.5 TP (18:45)
[2023-04-01] MEDS ORDERED: BENZ0.5T43 PO (18:45)
[2023-04-01] MEDS ORDERED: POLY15DR40 EACHEYE (18:45)
[2023-04-01] MEDS ORDERED: HALO5SYR IM (18:45)
[2023-04-01] MEDS ORDERED: HALO10TA13 PO (18:45)
[2023-04-01] MEDS ORDERED: FAMO20TA80 PO (18:45)
[2023-04-01] MEDS ORDERED: QUET100T PO (18:45)
[2023-04-01] MEDS ORDERED: OMEG10006 PO (18:45)
--- NOTE | 2023-04-01 19:30 | NUR ---
HAND OFF HAILE BILLINGSLEY
[2023-04-01] MEDS ORDERED: ALPRAZOLAM 0.5 MG TABLET PO PRN (20:30)
[2023-04-01] MEDS ORDERED: ONDANSETRON HCL/PF 4 MG/2 ML VIAL IVP PRN (20:30)
[2023-04-01] MEDS ORDERED: Z GUARD REMEDY 4 OZ OINT TP PRN (20:30)
[2023-04-01] MEDS ORDERED: LORAZEPAM 1 MG TABLET PO PRN (20:30)
[2023-04-01] MEDS ORDERED: CLOTRIMAZOLE 1% 15 GM TUBE TP PRN (20:30)
[2023-04-01] MEDS ORDERED: MAGNESIUM HYDROXIDE 30 ML UDC PO PRN (20:30)
[2023-04-01] MEDS ORDERED: ONDANSETRON 4 MG TAB.RAPDIS SL PRN (20:30)
[2023-04-01] MEDS ORDERED: ACETAMINOPHEN 325 MG TABLET PO PRN ×2 (20:30)
[2023-04-01] MEDS ORDERED: HOME MED MISCELLANEOUS XX SCH (20:30)
[2023-04-01] MEDS ORDERED: MAG HYDROX/AL HYDROX/SIMETH 30 ML UDC PO PRN (20:30)
[2023-04-01] MEDS ORDERED: diphenhydrAMINE HCL 25 MG CAPSULE PO PRN (20:30)
[2023-04-01] MEDS ORDERED: HALOPERIDOL LACTATE INJ 5 MG/ML VIAL IM PRN (20:30)
--- NOTE | 2023-04-01 20:43 | NUR ---
BED 312-2
--- NOTE | 2023-04-01 20:57 | NUR ---
Report given to Caitlin BILLINGSLEY
--- NOTE | 2023-04-01 21:28 | NUR ---
Patient transferred to [facility] via BLS. VS WNL.
[2023-04-01 21:30] VITALS: BP 138/79; TEMP 97.7
[2023-04-01] MEDS: QUETIAPINE FUMARATE 100 MG TABLET PO SCH (21:41)
[2023-04-01] MEDS ORDERED: GUAIFENESIN 300 MG/15 ML UDC PO PRN (22:00)
--- NOTE | 2023-04-01 22:45 | NUR ---
MS car cleaning supervisor Note Admitted this patient from ER dept with ER staff @ 2119 with diagnosis of failure to thrive. Patient is awake, alert and oriented x 1; ambulatory with steady gait. On room air; tolerating well saturating @ 96%. Breathing even and nonlabored. Denies any pain or discomfort. No IV access; reading interventionist hospitalist Rj Boo aware. Able to make needs known. Oriented to staff, room and unit. Refused body and skin assessment. Inventory of personal belongings done. Fall and safety precautions initiated: call light and table within reach, side rails up x 2, bed in lowest locked position. Will continue to monitor throughout shift.
[2023-04-02 05:53] LABS: BASOPHILS % (AUTO) 0.3 % (0.0-2.0); HEMATOCRIT 38 % (39-51); HEMOGLOBIN 12.8 g/dL (13.5-17.5); LYMPHOCYTES # (AUTO) 1.4 K/uL (0.8-4.8); LYMPHOCYTES % (AUTO) 27.3 % (20.0-44.0); MEAN CORPUSCULAR HGB CONC 34 g/dl (31.0-36.0); MEAN CORPUSCULAR VOLUME 98 fL (80-96); MONOCYTES # (AUTO) 0.6 K/uL (0.1-1.30); NEUTROPHILS # (AUTO) 2.8 K/uL (1.8-8.9); NEUTROPHILS % (AUTO) 54.4 % (43.0-81.0); PLATELET COUNT (AUTO) 160 K/uL (150-450); RED BLOOD CELL COUNT(AUTO) 3.83 MIL/uL (4.5-6.0); WHITE BLOOD COUNT (AUTO) 5.1 K/uL (4.3-11.0)
[2023-04-02 06:09] LABS: CALCIUM, SERUM 9.1 mg/dL (8.5-10.1); CREATININE 0.7 mg/dL (0.6-1.3); MAGNESIUM 1.8 mg/dL (1.8-2.4); POTASSIUM 3.8 mmol/L (3.5-5.1)
[2023-04-02 06:22] LABS: THYROID STIMULATING HORMONE 2.776 uIU/mL (0.358-3.74)
--- NOTE | 2023-04-02 07:07 | NUR ---
MS RN Closing Note Patient is awake, a/o x 1; ambulatory with steady gait. Still on room air; well tolerated. No c/o any pain or discomfort. All needs attended. Due med given as ordered. Fall and safety precautions maintained: call light and table within reach, side rails up x 2, bed in lowest locked position. Endorsed to morning shift for continuity of care.
--- NOTE | 2023-04-02 07:20 | NUR ---
ms rn received on bed, awake,alert,oriented x4, not in any form of distress, patient walked to the hallway, not in any form of distress, medications were c refused by patient.
[2023-04-02] MEDS: FAMOTIDINE (20 MG) 20 MG TABLET PO SCH (07:30)
[2023-04-02 08:00] VITALS: BP 122/70; TEMP 98
[2023-04-02 08:30] VITALS: BP 121/70; TEMP 98
[2023-04-02] MEDS: HALOPERIDOL 5 MG TABLET PO SCH ×2 (09:00→17:00)
[2023-04-02] MEDS: MULTIVITAMINS,THERAGRAN 1 UDTAB TABLET PO SCH (09:00)
[2023-04-02] MEDS: DIVALPROEX SODIUM 500 MG TABLET.DR PO SCH ×2 (09:00→17:00)
[2023-04-02] MEDS: LEVETIRACETAM (250 MG) 250 MG TABLET PO SCH ×2 (09:00→17:00)
[2023-04-02] MEDS: CHOLECALCIFEROL (VITAMIN D 3) 400 UNIT TABLET PO SCH (09:00)
[2023-04-02] MEDS: THIAMINE HCL 100 MG TABLET PO SCH (09:00)
[2023-04-02] MEDS: POLYVINYL ALCOHOL 15 ML BOTTLE EACHEYE SCH ×2 (09:00→17:00)
[2023-04-02] MEDS: BENZTROPINE MESYLATE (1 MG) 1 MG TABLET PO SCH ×2 (09:00→17:00)
[2023-04-02] MEDS: FOLIC ACID 1 MG TABLET PO SCH (09:19)
--- NOTE | 2023-04-02 10:00 | NUR ---
ms rn patient is acting out, haldol im given and as effective, all needs attended.
[2023-04-02] MEDS: HYDROCODONE/APAP 5/325MG TABLET PO PRN (13:43)
[2023-04-02 16:00] VITALS: BP 110/79; TEMP 97.7
[2023-04-02 17:30] VITALS: BP 110/75; TEMP 97.6
--- NOTE | 2023-04-02 17:46 | NUR ---
ms rn on bed, refused due meds again, will monitor patient. no distress noted.
--- NOTE | 2023-04-02 19:00 | NUR ---
RN OPENING NOTE RECEIVED PT ASLEEP IN BED. PT IS A/O X 1. PT IS IN RA, TOLERATING WELL, BREATHING EVEN AND UNLABORED @ THIS TIME. PT HAS NO IV PRESENT @ THIS TIME. SAFETY MEASURES IS IN PLACE. BED IN LOWEST AND LOCK POSITION. SIDE RAILS UP X 2. BEDSIDE TABLE AND CALL LIGHT IS EASY REACH. BED ALARM IS ON. WILL CONTINUE TO MONITOR PT ACCORDINGLY.
[2023-04-02] MEDS: QUETIAPINE FUMARATE 100 MG TABLET PO SCH (21:35)
--- NOTE | 2023-04-03 06:50 | NUR ---
RN CLOSING NOTE PT ASLEEP & RESTING COMFORTABLY IN BED. PT IS A/O X 1, RESPONSIVE AND FOLLOWS VERBAL COMMAND. PT IS IN RA, TOLERATING WELL, BREATHING EVEN AND UNLABORED @ THIS TIME. PT HAS NO IV PRESENT @ THIS TIME. SAFETY MEASURES IS IN PLACE. BED IN LOWEST AND LOCK POSITION. SIDE RAILS UP X 2. BEDSIDE TABLE AND CALL LIGHT IS EASY REACH. BED ALARM IS ON. WILL ENDORSE TO THE NEXT SHIFT FOR TAYLOR.
[2023-04-03] MEDS: FAMOTIDINE (20 MG) 20 MG TABLET PO SCH (07:30)
--- NOTE | 2023-04-03 07:57 | NUR ---
RN OPENING NOTE RECEIVED PATIENT IN BED, AO X 1, REFUSED TO TAKE VITAL SIGN. ABLE TO RESPONDS ALL PHYSICAL STIMULI. RESPIRATORY EVEN AND UNLABORED IN ROOM AIR. IN NO ACUTE RESPIRATORY DISTRESS OBSERVED. SKIN IS WARM TO TOUCH, KEEP CLEAN/DRY. KEPT ELEVATED HOB FOR ASPIRATION PRECAUTION/ENSURE AIRWAY, ALSO LOWEST BED POSITIONED. BED ALARM IS ON AT ALL TIMES FOR SAFETY. CALL LIGHT WITHIN REACH, WILL CONTINUE TO MONITOR.
[2023-04-03] MEDS: BENZTROPINE MESYLATE (1 MG) 1 MG TABLET PO SCH ×2 (09:00→16:40)
[2023-04-03] MEDS: MULTIVITAMINS,THERAGRAN 1 UDTAB TABLET PO SCH (09:00)
[2023-04-03] MEDS: POLYVINYL ALCOHOL 15 ML BOTTLE EACHEYE SCH ×2 (09:00→16:40)
[2023-04-03] MEDS: FOLIC ACID 1 MG TABLET PO SCH (09:00)
[2023-04-03] MEDS: CHOLECALCIFEROL (VITAMIN D 3) 400 UNIT TABLET PO SCH (09:00)
[2023-04-03] MEDS: LEVETIRACETAM (250 MG) 250 MG TABLET PO SCH ×2 (09:00→16:40)
[2023-04-03] MEDS: DIVALPROEX SODIUM 500 MG TABLET.DR PO SCH ×2 (09:00→16:40)
[2023-04-03] MEDS: THIAMINE HCL 100 MG TABLET PO SCH (09:00)
[2023-04-03] MEDS: HALOPERIDOL 5 MG TABLET PO SCH ×2 (09:00→16:40)
--- NOTE | 2023-04-03 13:57 | NUR ---
RN NOTE- PT WITH REPORTED ANXIOUSNESS AND RESTLESS FEELING. STATES 'I FEEL LIKE I'LL HAVE A SEIZURE." PT REFUSED ALL MEDS THIS MORNING. ATIVAN 2MG ADMINISTERED
[2023-04-03 18:37] VITALS: BP 143/88; TEMP 98
--- NOTE | 2023-04-03 18:59 | NUR ---
RN CLOSING NOTE PATIENT RESTING IN BED. CONFUSED OCCASIONALLY, IN NO ACUTE DISTRESS OBSERVED. RESPIRATORY EVEN AND UNLABORED IN ROOM AIR, NO SOB OR DESATURATION NOTED. SKIN IS WARM TO TOUCH KEEP CLEAN/DRY. KEPT ELEVATED HOB FOR ENSURE AIRWAY/ASPIRATION PRECAUTION. BED ALARM IS ON AT ALL TIMES FOR SAFETY. CALL LIGHT WITHIN REACH, WILL ENDORSE WEATHERSTRIP MACHINE OPERATOR.
--- NOTE | 2023-04-03 19:00 | NUR ---
RN OPENING NOTE RECEIVED PT AWAKE IN BED. PT IS A/O X 1. PT IS IN RA, TOLERATING WELL, BREATHING EVEN AND UNLABORED @ THIS TIME. PT HAS NO IV PRESENT @ THIS TIME. SAFETY MEASURES IS IN PLACE. BED IN LOWEST AND LOCK POSITION. SIDE RAILS UP X 4. BEDSIDE TABLE AND CALL LIGHT IS EASY REACH. BED ALARM IS ON. WILL CONTINUE TO MONITOR PT ACCORDINGLY.
[2023-04-03] MEDS: QUETIAPINE FUMARATE 100 MG TABLET PO SCH (22:00)
--- NOTE | 2023-04-04 06:33 | NUR ---
RN CLOSING NOTE PT ASLEEP & RESTING COMFORTABLY IN BED. PT IS A/O X 1, RESPONSIVE AND FOLLOWS VERBAL COMMAND. PT IS IN RA, TOLERATING WELL, BREATHING EVEN AND UNLABORED @ THIS TIME. PT HAS NO IV PRESENT @ THIS TIME. SAFETY MEASURES IS IN PLACE. BED IN LOWEST AND LOCKED POSITION. SIDE RAILS UP X 3. BEDSIDE TABLE AND CALL LIGHT IS EASY REACH. BED ALARM IS ON. WILL ENDORSE TO THE NEXT SHIFT FOR TAYLOR.
[2023-04-04] MEDS: FAMOTIDINE (20 MG) 20 MG TABLET PO SCH (07:42)
--- NOTE | 2023-04-04 07:54 | NUR ---
MS RN OPENING NOTE RECEIVED PATIENT AWAKE IN BED, APPEARS ANXIOUS, AOX1. STABLE ON ROOM AIR WITHOUT ANY DIFFICULTY. DENIED PAIN NOR DISCOMFORT AT THE MOMENT. NO IV ACCESS, MD IS AWARE. SAFETY MEASURES IN PLACE: BED IN LOWEST AND LOCKED POSITION, SIDE RAILS UP X3, BED ALARM ON, CALL LIGHT AND TRAY TABLE WITHIN EASY REACH. WILL CONTINUE TO MONITOR PATIENT.
[2023-04-04 08:00] VITALS: BP 120/74; TEMP 97.6
[2023-04-04] MEDS: MULTIVITAMINS,THERAGRAN 1 UDTAB TABLET PO SCH (09:12)
[2023-04-04] MEDS: THIAMINE HCL 100 MG TABLET PO SCH (09:12)
[2023-04-04] MEDS: LEVETIRACETAM (250 MG) 250 MG TABLET PO SCH ×3 (09:12→16:18)
[2023-04-04] MEDS: DIVALPROEX SODIUM 500 MG TABLET.DR PO SCH ×3 (09:12→16:17)
[2023-04-04] MEDS: BENZTROPINE MESYLATE (1 MG) 1 MG TABLET PO SCH ×3 (09:13→16:17)
[2023-04-04] MEDS: HALOPERIDOL 5 MG TABLET PO SCH ×3 (09:13→16:18)
[2023-04-04] MEDS: POLYVINYL ALCOHOL 15 ML BOTTLE EACHEYE SCH ×3 (09:14→16:17)
[2023-04-04] MEDS: FOLIC ACID 1 MG TABLET PO SCH (09:14)
[2023-04-04] MEDS: CHOLECALCIFEROL (VITAMIN D 3) 400 UNIT TABLET PO SCH (09:14)
--- NOTE | 2023-04-04 16:18 | NUR ---
RN NOTES - PATIENT REFUSED HIS 0 MEDICATIONS DESPITE ENCOURAGEMENT AND EDUCATION, PATIENT IS UPSET BECAUSE HE WANTED TO LEAVE TODAY. HOSPITALIST CHRIS AWARE OF THE REFUSAL.
[2023-04-04] MEDS ORDERED: HALOPERIDOL LACTATE INJ 5 MG/ML VIAL IM ONE (16:30)
--- NOTE | 2023-04-04 16:52 | NUR ---
RN NOTES - HALDOL 2MG IM GIVEN ON THE RIGHT DELTOID, PATIENT TOLERATED WELL. BAND AID APPLIED, NO ACTIVE BLEEDING NOTED. PATIENT WAS PRESCRIBED THE MEDICATION BY HOSPITALIST CHRIS PATIENT IS SEVERELY AGITATED, WANTED TO LEAVE, UNCOOPERATIVE WITH CARE. WILL CONTINUE TO MONITOR.
--- NOTE | 2023-04-04 19:27 | NUR ---
MS RN CLOSING NOTE PATIENT AWAKE IN BED, WATCHING TV, AOX1, CALM THIS TIME. STILL ON ROOM AIR WITHOUT ANY DIFFICULTY. DENIED PAIN NOR DISCOMFORT AT THE MOMENT. STILL WITH NO IV ACCESS PER MD ORDER. ALL DUE MEDS, ALL NEEDS MET GIVEN. SAFETY MEASURES MAINTAINED: BED IN LOWEST AND LOCKED POSITION, SIDE RAILS UP X2, BED ALARM ON, CALL LIGHT AND TRAY TABLE WITHIN EASY REACH. ENDORSED TO DEPORTATION OFFICER NURSE.
--- NOTE | 2023-04-04 19:30 | NUR ---
MS RN OPENING NOTE RECEIVED PT AWAKE IN BED. A/O X1 AND ABLE TO MAKE NEEDS KNOWN. PT STABLE ON ROOM AIR. NO SOB OR S/S OF RESPIRATORY DISTRESS. BREATHING EVEN AND UNLABORED. NO IV ACCESS DUE TO PT REFUSAL, MD AWARE. REFUSING VITAL SIGNS AT THIS TIME. SAFETY PRECAUTIONS IN PLACE. BED IN LOWEST LOCKED POSITION, HOB ELEVATED, SIDE RAILS UP X2, AND CALL LIGHT AND TABLE WITHIN REACH. ALL NEEDS MET AT THIS TIME.
[2023-04-04] MEDS: QUETIAPINE FUMARATE 100 MG TABLET PO SCH (21:15)
--- NOTE | 2023-04-04 21:15 | NUR ---
RN NOTE PT REFUSING QUETIAPINE AT THIS TIME. PT REFUSING MEDS AND FOOD. EDUCATED PATIENT ON THE IMPORTANCE OF MED COMPLIANCE AND EATING BUT PATIENT STILL REFUSED. CHARGE NURSE DENISSE BENZ.
--- NOTE | 2023-04-05 06:53 | NUR ---
MS RN CLOSING NOTE PT AWAKE IN BED. A/O X1 AND ABLE TO MAKE NEEDS KNOWN. PT STABLE ON ROOM AIR. NO SOB OR S/S OF RESPIRATORY DISTRESS. BREATHING EVEN AND UNLABORED. NO IV ACCESS DUE TO PT REFUSAL, MD AWARE. REFUSED EVERYTHING ALL SHIFT. SAFETY PRECAUTIONS IN PLACE AT ALL TIMES. BED IN LOWEST LOCKED POSITION, HOB ELEVATED, SIDE RAILS UP X2, AND CALL LIGHT AND TABLE WITHIN REACH. ALL NEEDS MET AT THIS TIME AND WILL ENDORSE TO ONCOMING NURSE FOR TAYLOR.
[2023-04-05] MEDS: FAMOTIDINE (20 MG) 20 MG TABLET PO SCH ×3 (07:30→09:30)
--- NOTE | 2023-04-05 07:38 | NUR ---
MS RN OPENING NOTE RECEIVED PATIENT AWAKE SITTING IN BED, US, AOX1. STABLE ON ROOM AIR WITHOUT ANY DIFFICULTY. DENIED PAIN NOR DISCOMFORT AT THE MOMENT. NO IV ACCESS, MD IS AWARE. SAFETY MEASURES IN PLACE: BED IN LOWEST AND LOCKED POSITION, SIDE RAILS UP X2, BED ALARM ON, CALL LIGHT AND TRAY TABLE WITHIN EASY REACH. WILL CONTINUE TO MONITOR PATIENT.
[2023-04-05] MEDS: FOLIC ACID 1 MG TABLET PO SCH (09:00)
[2023-04-05] MEDS: POLYVINYL ALCOHOL 15 ML BOTTLE EACHEYE SCH ×2 (09:00→17:00)
[2023-04-05] MEDS: LEVETIRACETAM (250 MG) 250 MG TABLET PO SCH ×2 (09:00→17:00)
[2023-04-05] MEDS: MULTIVITAMINS,THERAGRAN 1 UDTAB TABLET PO SCH (09:00)
[2023-04-05] MEDS: CHOLECALCIFEROL (VITAMIN D 3) 400 UNIT TABLET PO SCH (09:00)
[2023-04-05] MEDS: HALOPERIDOL 5 MG TABLET PO SCH ×2 (09:00→17:00)
[2023-04-05] MEDS: THIAMINE HCL 100 MG TABLET PO SCH (09:00)
[2023-04-05] MEDS: BENZTROPINE MESYLATE (1 MG) 1 MG TABLET PO SCH ×2 (09:00→17:00)
[2023-04-05] MEDS: DIVALPROEX SODIUM 500 MG TABLET.DR PO SCH ×2 (09:00→17:00)
--- NOTE | 2023-04-05 09:31 | NUR ---
RN NOTES - PATIENT REFUSED VS TAKING AND ALL HIS MEDICATIONS DESPITE ENCOURAGEMENT AND EDUCATION, PATIENT IS TANGENTIAL AND FIXATED ON LEAVING. MD IS MADE AWARE.
[2023-04-05] MEDS: HYDROCODONE/APAP 5/325MG TABLET PO PRN (15:16)
--- NOTE | 2023-04-05 15:19 | NUR ---
PAIN MANAGEMENT: PAIN SCALE 7/10 FOR HEADACHE. NORCO 5-325 MG 1 TAB GIVEN.
[2023-04-05] MEDS ORDERED: HALOPERIDOL LACTATE INJ 5 MG/ML VIAL IM PRN (15:30)
--- NOTE | 2023-04-05 15:34 | NUR ---
JOSE CRUZ NOTES - DR NOHEMY CLEARY 2MG IM Q6H PRN FOR AGITATION/ANXIETY/COMBATIVE BEHAVIOR. CARRIED OUT Addendum: 04/05/23 at 1732 by ANTHONY ACE RN *DR PAVON
--- NOTE | 2023-04-05 17:32 | NUR ---
RN NOTES - PATIENT REFUSED HIS 1700 MEDICATIONS DESPITE ENCOURAGEMENT AND EDUCATION, MD IS AWARE OF THE REFUSAL
--- NOTE | 2023-04-05 18:24 | NUR ---
MS RN CLOSING NOTE PATIENT AWAKE IN BED, WATCHING TV, AOX1, CALM, ABLE TO MAKE NEEDS KNOWN. STILL ON ROOM AIR WITHOUT ANY DIFFICULTY. DENIED PAIN NOR DISCOMFORT AT THE MOMENT. STILL WITH NO IV ACCESS PER MD ORDER. ALL NEEDS MET GIVEN. PATIENT REFUSED VS AND ALL MEDS TODAY. SAFETY MEASURES MAINTAINED: BED IN LOWEST AND LOCKED POSITION, SIDE RAILS UP X2, BED ALARM ON, CALL LIGHT AND TRAY TABLE WITHIN EASY REACH. WILL ENDORSE TO MANUFACTURING WEAVER NURSE.
[2023-04-05] MEDS: QUETIAPINE FUMARATE 100 MG TABLET PO SCH (21:43)
--- NOTE | 2023-04-06 06:38 | NUR ---
MS RN CLOSING NOTE PT AWAKE IN BED. A/O X1 AND ABLE TO MAKE NEEDS KNOWN. PT STABLE ON ROOM AIR. NO SOB OR S/S OF RESPIRATORY DISTRESS. BREATHING EVEN AND UNLABORED. NO IV ACCESS DUE TO PT REFUSAL, MD AWARE. MED COMPLIANT THIS SHIFT. SAFETY PRECAUTIONS IN PLACE AT ALL TIMES. BED IN LOWEST LOCKED POSITION, HOB ELEVATED, SIDE RAILS UP X2, AND CALL LIGHT AND TABLE WITHIN REACH. ALL NEEDS MET AT THIS TIME AND WILL ENDORSE TO ONCOMING NURSE FOR TAYLOR.
--- NOTE | 2023-04-06 07:45 | NUR ---
MS RN OPENING NOTE RECEIVED PATIENT ASLEEP IN BED, EASILY AROUSED, A & O X 1. STABLE ON ROOM AIR WITHOUT ANY DIFFICULTY. DENIED PAIN NOR DISCOMFORT AT THE MOMENT. REFUSED TO HAVE VITAL SIGNS CHECKED. NO IV ACCESS, OF WHICH MD IS AWARE. SAFETY MEASURES IN PLACE: BED IN LOWEST AND LOCKED POSITION; SIDE RAILS UP X2; BED ALARM ON; CALL LIGHT AND TRAY TABLE WITHIN EASY REACH. WILL CONTINUE TO CARE FOR AND MONITOR PATIENT PER MD'S POC.
[2023-04-06] MEDS: FAMOTIDINE (20 MG) 20 MG TABLET PO SCH (08:23)
[2023-04-06] MEDS: POLYVINYL ALCOHOL 15 ML BOTTLE EACHEYE SCH ×2 (10:00→18:13)
[2023-04-06] MEDS: BENZTROPINE MESYLATE (1 MG) 1 MG TABLET PO SCH ×2 (10:01→18:13)
[2023-04-06] MEDS: HALOPERIDOL 5 MG TABLET PO SCH ×2 (10:02→18:13)
[2023-04-06] MEDS: DIVALPROEX SODIUM 500 MG TABLET.DR PO SCH ×2 (10:02→18:13)
[2023-04-06] MEDS: FOLIC ACID 1 MG TABLET PO SCH (10:02)
[2023-04-06] MEDS: THIAMINE HCL 100 MG TABLET PO SCH (10:03)
[2023-04-06] MEDS: LEVETIRACETAM (250 MG) 250 MG TABLET PO SCH ×2 (10:03→18:13)
[2023-04-06] MEDS: MULTIVITAMINS,THERAGRAN 1 UDTAB TABLET PO SCH (10:03)
[2023-04-06] MEDS: CHOLECALCIFEROL (VITAMIN D 3) 400 UNIT TABLET PO SCH ×2 (10:03→18:14)
--- NOTE | 2023-04-06 19:40 | NUR ---
MS RN OPENING NOTE RECEIVED PATIENT FROM AM NURSE; PATIENT AWAKE IN BED, A/O X 1-2; STABLE ON ROOM AIR, BREATHING EVENLY AND NO S/S OF DISTRESS NOTED; PATIENT HAS NO IV ACCESS, MD AWARE; ENCOURAGED VERBALIZATION OF NEEDS; SAFETY MEASURES IMPLEMENTED, BED LOCKED IN LOWEST POSITION, SIDE RAILS UP X 2, CALL LIGHT AND TABLE WITHIN REACH; WILL CONTINUE TO MONITOR THROUGHOUT SHIFT
--- NOTE | 2023-04-06 20:30 | NUR ---
MS RN NOTE PATIENT REFUSED TO HAVE HIS VITAL SIGNS TAKEN. WITH TELEHEALTH NURSE EDUCATOR AT BEDSIDE.
[2023-04-06] MEDS: QUETIAPINE FUMARATE 100 MG TABLET PO SCH (21:45)
--- NOTE | 2023-04-07 06:50 | NUR ---
MS RN CLOSING NOTE PATIENT RESTING IN BED, A/O X 1-2; STABLE ON ROOM AIR, BREATHING EVENLY AND NO S/S OF DISTRESS NOTED; PATIENT HAS NO IV ACCESS, MD AWARE; REORIENTATED PATIENT NEEDED; ADMINISTERED MEDICATIONS PRESCRIBED; PATIENT'S NEEDS ATTENDED; MONITORED PATIENT ACCORDINGLY; REFUSED VITAL SIGNS ASSESSMENT; NO COMPLAINTS OF PAIN AND DISCOMFORT AT THIS TIME; SAFETY MEASURES IMPLEMENTED, BED LOCKED IN LOWEST POSITION, SIDE RAILS UP X 2, CALL LIGHT AND TABLE WITHIN REACH; WILL ENDORSE TO AM NURSE FOR TAYLOR.
--- NOTE | 2023-04-07 07:15 | NUR ---
MS RN OPENING NOTE RECEIVED PATIENT AWAKE IN BED, A/O X 1-2; PATIENT ON ROOM AIR, BREATHING EVENLY AND NO S/S OF DISTRESS NOTED; PATIENT HAS NO IV ACCESS, MD AWARE; PATIENT VERBALIZING STATUS OF HIS TRANSFER, ASSURED PATIENT THAT ACCOUNTANT HELPER IS WORKING ON HIS CASE AND NURSE WILL FOLLOW UP ON STATUS; SAFETY MEASURES IMPLEMENTED, BED LOCKED IN LOWEST POSITION, SIDE RAILS UP X 2, CALL LIGHT AND TABLE WITHIN REACH; WILL CONTINUE TO MONITOR
[2023-04-07] MEDS: FAMOTIDINE (20 MG) 20 MG TABLET PO SCH (07:30)
[2023-04-07] MEDS: HALOPERIDOL 5 MG TABLET PO SCH ×2 (09:00→17:00)
[2023-04-07] MEDS: MULTIVITAMINS,THERAGRAN 1 UDTAB TABLET PO SCH (09:00)
[2023-04-07] MEDS: FOLIC ACID 1 MG TABLET PO SCH (09:00)
[2023-04-07] MEDS: LEVETIRACETAM (250 MG) 250 MG TABLET PO SCH ×2 (09:00→17:00)
[2023-04-07] MEDS: BENZTROPINE MESYLATE (1 MG) 1 MG TABLET PO SCH ×2 (09:00→17:00)
[2023-04-07] MEDS: DIVALPROEX SODIUM 500 MG TABLET.DR PO SCH ×2 (09:00→17:00)
[2023-04-07] MEDS: THIAMINE HCL 100 MG TABLET PO SCH (09:00)
[2023-04-07] MEDS: POLYVINYL ALCOHOL 15 ML BOTTLE EACHEYE SCH ×2 (09:00→17:00)
--- NOTE | 2023-04-07 10:00 | NUR ---
Patient refused all am medications. Patient educated of the risks and benefits of taking medications timely as prescribed, patient still refused, patient however asked for pain medications after PT, charge nurse made aware
[2023-04-07] MEDS: HYDROCODONE/APAP 5/325MG TABLET PO PRN (10:04)
--- NOTE | 2023-04-07 18:58 | NUR ---
MS RN CLOSING NOTE PATIENT RESTING IN BED, A/O X 1-2; STABLE ON ROOM AIR, BREATHING EVENLY AND NO S/S OF DISTRESS NOTED; PATIENT HAS NO IV ACCESS, MD AWARE; REORIENTATED/REEDUCATED PATIENT NEEDED; REFUSED ALL MEDICATIONS EXCEPT FOR NORCO PAIN, PATIENT'S NEEDS ATTENDED; MONITORED PATIENT ACCORDINGLY; REFUSED VITAL SIGNS ASSESSMENT; NO COMPLAINTS OF PAIN AND DISCOMFORT AT THIS TIME; SAFETY MEASURES IMPLEMENTED, BED LOCKED IN LOWEST POSITION, SIDE RAILS UP X 2, CALL LIGHT AND TABLE WITHIN REACH; WILL ENDORSE TO PM NURSE FOR TAYLOR.
--- NOTE | 2023-04-07 19:26 | NUR ---
MS RN OPENING NOTE RECEIVED PATIENT FROM AM NURSE; PATIENT AWAKE IN BED, A/O X 1-2; STABLE ON ROOM AIR, BREATHING EVENLY AND NO S/S OF DISTRESS NOTED; PATIENT STILL HAS NO IV ACCESS, MD AWARE; ENCOURAGED VERBALIZATION OF NEEDS; SAFETY MEASURES IMPLEMENTED, BED LOCKED IN LOWEST POSITION, SIDE RAILS UP X 2, CALL LIGHT WITHIN REACH; WILL CONTINUE TO MONITOR THROUGHOUT SHIFT
[2023-04-07 20:00] VITALS: BP 116/77; TEMP 97.8
[2023-04-07] MEDS: QUETIAPINE FUMARATE 100 MG TABLET PO SCH (21:09)
--- NOTE | 2023-04-08 06:53 | NUR ---
MS RN CLOSING NOTE PATIENT RESTING IN BED, A/O X 1-2; STABLE ON ROOM AIR, BREATHING EVENLY AND NO S/S OF DISTRESS NOTED; PATIENT STILL HAS NO IV ACCESS, MD AWARE; ADMINISTERED MEDICATIONS PRESCRIBED; PATIENT'S NEEDS ATTENDED; MONITORED ACCORDINGLY; NO COMPLAINTS OF PAIN AND DISCOMFORT AT THIS TIME; SAFETY MEASURES IMPLEMENTED, BED LOCKED IN LOWEST POSITION, SIDE RAILS UP X 2, CALL LIGHT WITHIN REACH; WILL ENDORSE TO AM NURSE FOR TAYLOR.
--- NOTE | 2023-04-08 07:26 | NUR ---
OPENING NOTE PATIENT RECEIVED ASLEEP WITH VISIBLE CHEST EXTENSION, RESPONSIVE TO VERBAL STIMULI AND LIGHT TOUCH. PATIENT IS A/Ox1-2, CONFUSED AND GUARDED. REFUSED REASSESSMENT. EXPLAINED IMPORTANCE OF PLAN OF CARE, PT CONTINUE TO REFUSED. EXPRESSED NO PAIN. UPDATED PT BOARD. FALL AND SAFETY PRECAUTION MAINTAINED: BED LOCKED AND AT THE LOWEST POSITION, SRx2, CALL LIGHT WITHIN REACH.
[2023-04-08] MEDS: FAMOTIDINE (20 MG) 20 MG TABLET PO SCH (07:30)
[2023-04-08] MEDS: HALOPERIDOL 5 MG TABLET PO SCH ×2 (09:00→18:01)
[2023-04-08] MEDS: LEVETIRACETAM (250 MG) 250 MG TABLET PO SCH ×2 (09:00→18:07)
[2023-04-08] MEDS: FOLIC ACID 1 MG TABLET PO SCH (09:00)
[2023-04-08] MEDS: MULTIVITAMINS,THERAGRAN 1 UDTAB TABLET PO SCH (09:00)
[2023-04-08] MEDS: POLYVINYL ALCOHOL 15 ML BOTTLE EACHEYE SCH ×2 (09:00→18:01)
[2023-04-08] MEDS: BENZTROPINE MESYLATE (1 MG) 1 MG TABLET PO SCH ×2 (09:00→18:02)
[2023-04-08] MEDS: DIVALPROEX SODIUM 500 MG TABLET.DR PO SCH ×2 (09:00→18:01)
[2023-04-08] MEDS: CHOLECALCIFEROL (VITAMIN D 3) 400 UNIT TABLET PO SCH (09:00)
[2023-04-08] MEDS: THIAMINE HCL 100 MG TABLET PO SCH (09:00)
[2023-04-08 15:30] VITALS: BP 121/73; TEMP 98.6
--- NOTE | 2023-04-08 18:08 | NUR ---
MEDICATION NOTE LAVELLPPRA WAS WASTED. PATIENT REFUSED MEDICATION. MEDICATION WAS LATE, DUE TO PATIENT REQUIRING ADDITIONAL MEDICATION TEACHING.
--- NOTE | 2023-04-08 18:53 | NUR ---
CLOSING NOTE PATIENT AWAKE, WATCHING TV. A/Ox4 ON ROOM AIR WITH NO S/S OF SOB OR DISTRESS. NO IV ACCESS. PATIENT THROUGHOUT SHIFT REQUIRED CONSTANT REORIENTATION AND PATIENT TEACHING. MEDICATION AND CARE EDUCATION PROVIDED VERBALLY, PATIENT CONTINUES TO HAVE DISORGANIZED THOUGHTS. CONTINENT: BRP/ URINAL OUT PUT 400CC. NO PAIN AT THIS TIME PER PATIENT. FALL AND SAFETY PRECAUTION REMAIN: BED LOCK AND AT THE LOWEST POSITION, SRx2, CALL LIGHT WITH REACH.
--- NOTE | 2023-04-08 19:40 | NUR ---
MS RN OPENING NOTES RECEIVED PATIENT AWAKE IN BED, WATCHING TV. A/O X 1-2, CONFUSED. NEEDS FREQUENT RE-ORIENTATION. PATIENT ON ROOM AIR, BREATHING EVEN AND UNLABORED, NO S/S OF DISTRESS OR SOB NOTED. PATIENT HAS NO IV ACCESS, MD AWARE. ENCOURAGED VERBALIZATION OF NEEDS. SAFETY MEASURES IN PLACE WITH BED IN LOWEST LOCKED POSITION. SIDE RAILS UP X 2. BED ALARM ON. CALL LIGHT AND TRAY WITHIN EASY REACH. WILL CONTINUE WITH THE PLAN OF CARE.
[2023-04-08 20:00] VITALS: BP 102/73; TEMP 97.5
[2023-04-08] MEDS: QUETIAPINE FUMARATE 100 MG TABLET PO SCH (22:02)
--- NOTE | 2023-04-09 07:24 | NUR ---
MS RN CLOSING NOTES PATIENT SLEEPING IN BED. EASILY AWAKEN BY VERBAL STIMULI. A/O X 1-2, CONFUSED. FREQUENT RE-ORIENTATION. PATIENT ON ROOM AIR, BREATHING EVEN AND UNLABORED, NO S/S OF DISTRESS OR SOB NOTED. PATIENT HAS NO IV ACCESS, MD AWARE. ENCOURAGED VERBALIZATION OF NEEDS. SAFETY MEASURES MAINTAINED DURING SHIFT. WILL ENDORSE TO AM NURSE FOR CONTINUITY OF CARE.
[2023-04-09 08:00] VITALS: BP 126/76; TEMP 98.5
[2023-04-09] MEDS: FAMOTIDINE (20 MG) 20 MG TABLET PO SCH (08:32)
[2023-04-09] MEDS: HALOPERIDOL 5 MG TABLET PO SCH ×2 (08:32→16:50)
[2023-04-09] MEDS: MULTIVITAMINS,THERAGRAN 1 UDTAB TABLET PO SCH (08:33)
[2023-04-09] MEDS: BENZTROPINE MESYLATE (1 MG) 1 MG TABLET PO SCH ×2 (08:33→16:50)
[2023-04-09] MEDS: LEVETIRACETAM (250 MG) 250 MG TABLET PO SCH ×2 (08:33→16:50)
[2023-04-09] MEDS: CHOLECALCIFEROL (VITAMIN D 3) 400 UNIT TABLET PO SCH (08:34)
[2023-04-09] MEDS: THIAMINE HCL 100 MG TABLET PO SCH (08:34)
[2023-04-09] MEDS: DIVALPROEX SODIUM 500 MG TABLET.DR PO SCH ×2 (08:34→16:50)
[2023-04-09] MEDS: POLYVINYL ALCOHOL 15 ML BOTTLE EACHEYE SCH ×2 (08:35→16:50)
[2023-04-09] MEDS: FOLIC ACID 1 MG TABLET PO SCH (08:35)
--- NOTE | 2023-04-09 12:26 | NUR ---
MS RN OPENING NOTES RECEIVED PATIENT ON BED, A/O X 1-2, CONFUSED. ON ROOM AIR TOLERATING WELL. NO SOB NOTED. NOT IN DISTRESS. WITH NO IV ACCESS, PATIENT STILL REFUSED FOR IV INSERTION. MD AWARE. ENCOURAGED VERBALIZATION OF NEEDS. SAFETY MEASURES IN PLACED. CALL LIGHT WITHIN REACH. BED ON LOWEST LOCKED POSITION, SIDE RAILS UP X2. WILL CONTINUE TO MONITOR.
[2023-04-09 16:00] VITALS: BP 130/80; TEMP 98
--- NOTE | 2023-04-09 18:29 | NUR ---
MS RN CLOSING NOTES PATIENT ON BED, A/O X 2, CONFUSED. ON ROOM AIR TOLERATING WELL. NO SOB NOTED. NOT IN DISTRESS. WITH NO IV ACCESS, PATIENT STILL REFUSED FOR IV INSERTION. MD AWARE. ENCOURAGED VERBALIZATION OF NEEDS. DUE MEDS GIVEN. SAFETY MEASURES IN PLACED. CALL LIGHT WITHIN REACH. BED ON LOWEST LOCKED POSITION, SIDE RAILS UP X2. WILL ENDORSE TO NEXT SHIFT FOR TAYLOR.
--- NOTE | 2023-04-09 19:30 | NUR ---
MS RN OPENING NOTES RECEIVED PT ON BED, A/O X2, CONFUSED, WALKED OUT OF ROOM LOOKING FOR PHONE AND WAS THREATENING NURSE, REORIENTED AND BROUGHT BACK TO ROOM. ON ROOM AIR TOLERATING WELL. NO SOB NOTED. NOT IN DISTRESS. NO IV ACCESS, PATIENT STILL REFUSED FOR IV INSERTION. MD AWARE. SAFETY MEASURES IN PLACE: CALL LIGHT WITHIN REACH, BED ON LOWEST LOCKED POSITION, SIDE RAILS UP X2. WILL CONTINUE TO MONITOR AND ASSIST.
[2023-04-09 20:00] VITALS: BP 112/72; TEMP 97.7
[2023-04-09] MEDS: QUETIAPINE FUMARATE 100 MG TABLET PO SCH (21:06)
--- NOTE | 2023-04-10 06:42 | NUR ---
MS RN CLOSING NOTES PT AWAKE IN BED, A/O X2, PERIODS OF CONFUSION. STABLE ON ROOM AIR TOLERATING WELL. NO SOB NOTED. NOT IN DISTRESS. NO IV ACCESS, PATIENT STILL REFUSED FOR IV INSERTION. MD AWARE. SKIN ASSESSMENT STILL REFUSED BUT WAS ABLE TO SEE BACK SIDE, SKIN INTACT. ALL CARE PROVIDED AND MEDS TOLERATED WELL. SAFETY MEASURES MAINTAINED: CALL LIGHT WITHIN REACH, BED ON LOWEST LOCKED POSITION, SIDE RAILS UP X2. WILL ENDORSE TAYLOR TO DAY SHIFT NURSE.
[2023-04-10 07:00] VITALS: BP 112/69; TEMP 97.6
[2023-04-10] MEDS: FAMOTIDINE (20 MG) 20 MG TABLET PO SCH (07:30)
--- NOTE | 2023-04-10 08:13 | NUR ---
RN OPENING NOTE RECEIVED PATIENT IN BED, AO X 2-3, FORGETFUL OCCASIONALLY. ABLE TO RESPONDS ALL PHYSICAL STIMULI. RESPIRATORY EVEN AND UNLABORED IN ROOM AIR. IN NO ACUTE RESPIRATORY DISTRESS OBSERVED. SKIN IS WARM TO TOUCH, KEEP CLEAN/DRY. KEPT ELEVATED HOB FOR ASPIRATION PRECAUTION/ENSURE AIRWAY, ALSO LOWEST BED POSITIONED. BED ALARM IS ON AT ALL TIMES FOR SAFETY. CALL LIGHT WITHIN REACH, WILL CONTINUE TO MONITOR.
[2023-04-10] MEDS: CHOLECALCIFEROL (VITAMIN D 3) 400 UNIT TABLET PO SCH (09:00)
[2023-04-10] MEDS: LEVETIRACETAM (250 MG) 250 MG TABLET PO SCH ×2 (09:00→17:00)
[2023-04-10] MEDS: THIAMINE HCL 100 MG TABLET PO SCH (09:00)
[2023-04-10] MEDS: DIVALPROEX SODIUM 500 MG TABLET.DR PO SCH ×2 (09:00→17:00)
[2023-04-10] MEDS: MULTIVITAMINS,THERAGRAN 1 UDTAB TABLET PO SCH (09:00)
[2023-04-10] MEDS: HALOPERIDOL 5 MG TABLET PO SCH ×2 (09:00→17:00)
[2023-04-10] MEDS: FOLIC ACID 1 MG TABLET PO SCH (09:00)
[2023-04-10] MEDS: BENZTROPINE MESYLATE (1 MG) 1 MG TABLET PO SCH ×2 (09:00→17:00)
[2023-04-10] MEDS: POLYVINYL ALCOHOL 15 ML BOTTLE EACHEYE SCH ×2 (09:04→17:00)
[2023-04-10 16:00] VITALS: BP 114/72; TEMP 97.8
--- NOTE | 2023-04-10 18:43 | NUR ---
RN CLOSING NOTE PATIENT RESTING IN BED, IN NO ACUTE DISTRESS OBSERVED. RESPIRATORY EVEN AND UNLABORED IN ROOM AIR, NO SOB OR DESATURATION NOTED. SKIN IS WARM TO TOUCH KEEP CLEAN/DRY. KEPT ELEVATED HOB FOR ENSURE AIRWAY/ASPIRATION PRECAUTION. BED ALARM IS ON AT ALL TIMES FOR SAFETY. CALL LIGHT WITHIN REACH, WILL ENDORSE CONSULTANT DIETITIAN.
--- NOTE | 2023-04-10 19:30 | NUR ---
RN OPENING NOTE RECEIVED PATIENT AWAKE IN BED WATCHING TV AT THIS TIME. A/O X2-3, ORIENTED TO PERSON AND TIME, LOOSE ASSOCIATION IN THOUGHT PROCESS NOTED, REORIENTED MULTIPLE TIMES. IN NO ACUTE DISTRESS OBSERVED. RESPIRATORY EVEN AND UNLABORED IN ROOM AIR, NO SOB OR DESATURATION NOTED. SKIN IS WARM TO TOUCH KEEP CLEAN/DRY. SAFETY PRECAUTIONS IN PLACE: BED LOCKED AND IN LOW POSITION, SIDE RAILS X2, CALL LIGHT AND TRAY TABLE WITHIN REACH. WILL CONTINUE TO MONITOR AND ASSIST.
[2023-04-10 20:00] VITALS: BP_SYST 121; BP_DIAS 82; BP_DIAS 83; TEMP 97.5; TEMP 97.8
[2023-04-10] MEDS: QUETIAPINE FUMARATE 100 MG TABLET PO SCH (21:34)
--- NOTE | 2023-04-11 06:22 | NUR ---
RN CLOSING NOTE PATIENT SLEEPING IN BED, EASILY AROUSABLE. A/O X2-3, ORIENTED TO PERSON AND TIME, DISORGANIZATION AND LOOSE ASSOCIATION IN THOUGHT PROCESS NOTED, REORIENTED MULTIPLE TIMES. IN NO ACUTE DISTRESS OBSERVED. RESPIRATORY EVEN AND UNLABORED IN ROOM AIR, NO SOB OR DESATURATION NOTED. SKIN IS WARM TO TOUCH KEEP CLEAN/DRY. ALL CARE PROVIDED AND MEDS TOLERATED WELL. SAFETY PRECAUTIONS MAINTAINED: BED LOCKED AND IN LOW POSITION, SIDE RAILS X2, CALL LIGHT AND TRAY TABLE WITHIN REACH. WILL ENDORSE TAYLOR TO DAY SHIFT NURSE.
[2023-04-11] MEDS: FAMOTIDINE (20 MG) 20 MG TABLET PO SCH ×2 (07:30→08:04)
[2023-04-11 08:00] VITALS: BP_SYST 107; BP_SYST 116; BP_DIAS 68; BP_DIAS 76; TEMP 97.6; TEMP 98.3
--- NOTE | 2023-04-11 08:05 | NUR ---
RN OPENING NOTE PATIENT SLEEPING IN BED, EASILY AROUSABLE. A/O X2-3. NOT IN ACUTE DISTRESS OBSERVED. RESPIRATORY EVEN AND UNLABORED IN ROOM AIR, NO SOB OR DESATURATION NOTED. SKIN IS WARM TO TOUCH KEEP CLEAN/DRY. SAFETY PRECAUTIONS MAINTAINED: BED LOCKED AND IN LOW POSITION, SIDE RAILS X2, CALL LIGHT AND TRAY TABLE WITHIN REACH. WILL CONTINUE TO MONITOR.
[2023-04-11] MEDS: MULTIVITAMINS,THERAGRAN 1 UDTAB TABLET PO SCH (08:41)
[2023-04-11] MEDS: LEVETIRACETAM (250 MG) 250 MG TABLET PO SCH ×3 (08:41→17:00)
[2023-04-11] MEDS: FOLIC ACID 1 MG TABLET PO SCH (08:42)
[2023-04-11] MEDS: DIVALPROEX SODIUM 500 MG TABLET.DR PO SCH ×3 (08:42→17:00)
[2023-04-11] MEDS: BENZTROPINE MESYLATE (1 MG) 1 MG TABLET PO SCH ×3 (08:42→17:00)
[2023-04-11] MEDS: THIAMINE HCL 100 MG TABLET PO SCH (08:42)
[2023-04-11] MEDS: CHOLECALCIFEROL (VITAMIN D 3) 400 UNIT TABLET PO SCH (08:42)
[2023-04-11] MEDS: HALOPERIDOL 5 MG TABLET PO SCH ×3 (08:42→17:00)
[2023-04-11] MEDS: POLYVINYL ALCOHOL 15 ML BOTTLE EACHEYE SCH ×2 (09:11→16:35)
[2023-04-11 16:00] VITALS: BP 111/68; TEMP 99.1
--- NOTE | 2023-04-11 18:30 | NUR ---
RN CLOSING NOTE PATIENT AWAKE IN BED, WATCHING TV, A/O X2-3, ORIENTED TO PERSON AND TIME, DISORGANIZATION AND LOOSE ASSOCIATION IN THOUGHT PROCESS NOTED, REORIENTED MULTIPLE TIMES. IN NO ACUTE DISTRESS OBSERVED. RESPIRATORY EVEN AND UNLABORED IN ROOM AIR, NO SOB OR DESATURATION NOTED. PATIENT IS NON-COMPLIANT WITH MEDICATIONS, REFUSED ALL EVENING MEDS. KEPT PATIENT CLEAN AND COMFORTABLE. SAFETY PRECAUTIONS MAINTAINED: BED LOCKED AND IN LOW POSITION, SIDE RAILS X2, CALL LIGHT AND TRAY TABLE WITHIN REACH. WILL ENDORSE TAYLOR TO ALUMINUM CONTAINER TESTER NURSE.
--- NOTE | 2023-04-11 19:30 | NUR ---
MS RN OPENING NOTE RECEIVED PATIENT IN BED, WITH HOB ELEVATED, AWAKE, ALERT AND ORIENTED X2-3. ABLE TO MAKE NEEDS KNOWN. AFEBRILE AND NOT IN ANY FORM OF ACUTE DISTRESS. BREATHING EVEN AND NON LABORED. NO C/O PAIN OR DISCOMFORT AT THIS TIME. SAFETY MEASURES IN PLACE. KEPT BED IN LOCKED AND IN LOW POSITION. SIDE RAILS UP X2. ADVISED TO USE THE CALL LIGHT WHEN IN NEED OF ASSISTANCE.
--- NOTE | 2023-04-11 20:23 | NUR ---
MS RN NOTE PATIENT REFUSED VITAL SIGNS CHECK AND SAID THAT STAFFS HAD BEEN CHECKING HIS BP SEVERAL TIMES TODAY. PATIENT WAS REPORTED TO REFUSE CARE/MEDICATIONS INCLUDING IV INSERTION AND MD IS AWARE ABOUT IT.
[2023-04-11] MEDS: QUETIAPINE FUMARATE 100 MG TABLET PO SCH (21:35)
--- NOTE | 2023-04-12 06:30 | NUR ---
MS RN CLOSING NOTE PATIENT IN BED, WITH HOB ELEVATED, ASLEEP BUT EASY TO AROUSE AND RESPONSIVE. NOTED WITH CONFUSION. ABLE TO MAKE NEEDS KNOWN. AFEBRILE AND NOT IN ANY FORM OF ACUTE DISTRESS. BREATHING EVEN AND NON LABORED. NO C/O PAIN OR DISCOMFORT THROUGHOUT THE SHIFT. MEDICATED ORDERED. SAFETY MEASURES IN PLACE. KEPT BED IN LOCKED AND IN LOW POSITION. SIDE RAILS UP X2. ADVISED TO USE THE CALL LIGHT WHEN IN NEED OF ASSISTANCE. ALL NURSING NEEDS ATTENDED. ENDORSED TO INCOMING SHIFT FOR CONTINUITY OF CARE.
--- NOTE | 2023-04-12 07:20 | NUR ---
OPENING NOTE PATIENT RECEIVED ASLEEP WITH VISIBLE CHEST EXTENSION, RESPONSIVE TO LIGHT TOUCH. PATIENT IS A/Ox1-2, CONFUSED AND GUARDED. REFUSED REASSESSMENT. EXPLAINED IMPORTANCE OF PLAN OF CARE, PT CONTINUE TO REFUSED. EXPRESSED NO PAIN. UPDATED PT BOARD. FALL AND SAFETY PRECAUTION MAINTAINED: BED LOCKED AND AT THE LOWEST POSITION, SRx2, CALL LIGHT WITHIN REACH.
[2023-04-12 08:00] VITALS: BP 120/80; TEMP 98.2
[2023-04-12] MEDS: FAMOTIDINE (20 MG) 20 MG TABLET PO SCH (08:27)
[2023-04-12] MEDS: THIAMINE HCL 100 MG TABLET PO SCH (09:00)
[2023-04-12] MEDS: DIVALPROEX SODIUM 500 MG TABLET.DR PO SCH ×2 (09:00→17:15)
[2023-04-12] MEDS: CHOLECALCIFEROL (VITAMIN D 3) 400 UNIT TABLET PO SCH (09:00)
[2023-04-12] MEDS: MULTIVITAMINS,THERAGRAN 1 UDTAB TABLET PO SCH (09:00)
[2023-04-12] MEDS: POLYVINYL ALCOHOL 15 ML BOTTLE EACHEYE SCH ×2 (09:00→17:15)
[2023-04-12] MEDS: FOLIC ACID 1 MG TABLET PO SCH (09:00)
[2023-04-12] MEDS: BENZTROPINE MESYLATE (1 MG) 1 MG TABLET PO SCH ×2 (09:00→17:15)
[2023-04-12] MEDS: LEVETIRACETAM (250 MG) 250 MG TABLET PO SCH ×2 (09:00→17:15)
[2023-04-12] MEDS: HALOPERIDOL 5 MG TABLET PO SCH ×2 (09:00→17:15)
--- NOTE | 2023-04-12 09:21 | NUR ---
MEDICATION NOTE PATIENT A/Ox1-2, REFUSING MEDICATION. EXPLAINED THE IMPORTANCE OF MEDICATION REGIME AND CARE. SEVERAL ATTEMPTS OF VERBAL MEDICATION TEACHING AND EXPLAINING LIST OF MEDICATION. PATIENT UNABLE TO MAINTAINED FOCUSED AND CONTINUED TO REFUSE.
[2023-04-12 16:00] VITALS: BP 135/81; TEMP 98.2
--- NOTE | 2023-04-12 19:00 | NUR ---
CLOSING NOTE PATIENT IN BED AWAKE A/O x2, CONFUSED ON ROOM AIR WITH NO S/S OF SOB. PER PATIENT NO PAIN AT THIS TIME. NO IV ACCESS. PATIENT EXPLAINED AWAITING DISCHARGE/ PLACEMENT FROM INTERVIEWING CLERK. PATIENT PM MEDICATION WERE ADMINISTERED AND MEDICATION EDUCATION WAS PROVIDED. FALL AND SAFETY PRECAUTION MAINTAINED: BED LOCKED AND AT THE LOWEST POSITION, SRx2, CALL LIGHT WITHIN REACH.
--- NOTE | 2023-04-12 19:30 | NUR ---
MS RN OPENING NOTE RECEIVED PATIENT IN BED, AWAKE, ALERT AND ORIENTED WITH CONFUSION. AFEBRILE AND NOT IN ANY FORM OF ACUTE DISTRESS. BREATHING EVEN AND NON LABORED. NO C/O PAIN OR DISCOMFORT AT THIS TIME. SAFETY MEASURES IN PLACE. KEPT BED IN LOCKED AND IN LOW POSITION. SIDE RAILS UP X2. ADVISED TO USE THE CALL LIGHT WHEN IN NEED OF ASSISTANCE.
[2023-04-12] MEDS: QUETIAPINE FUMARATE 100 MG TABLET PO SCH (21:50)
--- NOTE | 2023-04-13 06:30 | NUR ---
MS RN CLOSING NOTE PATIENT IN BED, ASLEEP BUT EASY TO AROUSE AND RESPONSIVE. AFEBRILE AND NOT IN ANY FORM OF ACUTE DISTRESS. BREATHING EVEN AND NON LABORED. NO C/O PAIN OR DISCOMFORT THROUGHOUT THE SHIFT. MEDICATED ORDERED. SAFETY MEASURES IN PLACE. KEPT BED IN LOCKED AND IN LOW POSITION. SIDE RAILS UP X2. ADVISED TO USE THE CALL LIGHT WHEN IN NEED OF ASSISTANCE. ALL NURSING NEEDS ATTENDED. ENDORSED TO INCOMING SHIFT FOR CONTINUITY OF CARE.
[2023-04-13 07:00] VITALS: BP 118/73; TEMP 97.7
--- NOTE | 2023-04-13 07:26 | NUR ---
MS RN OPENING NOTE RECEIVED PATIENT IN BED, ASLEEP BUT EASY TO AROUSE AND RESPONSIVE. AFEBRILE AND NOT IN ANY FORM OF ACUTE DISTRESS. BREATHING EVEN AND NON LABORED. STABLE ON ROOM AIR. NO C/O PAIN OR DISCOMFORT AT THIS TIME. WILL ADMINISTER MEDICATIONS ORDERED. SAFETY MEASURES IN PLACE. KEPT BED IN LOCKED AND IN LOW POSITION. SIDE RAILS UP X2. ADVISED TO USE THE CALL LIGHT WHEN IN NEED OF ASSISTANCE. ALL NURSING NEEDS ATTENDED. WILL CONTINUE TO MONITOR.
[2023-04-13] MEDS: FAMOTIDINE (20 MG) 20 MG TABLET PO SCH (07:30)
[2023-04-13] MEDS: BENZTROPINE MESYLATE (1 MG) 1 MG TABLET PO SCH ×2 (09:00→17:57)
[2023-04-13] MEDS: DIVALPROEX SODIUM 500 MG TABLET.DR PO SCH ×2 (09:00→17:59)
[2023-04-13] MEDS: LEVETIRACETAM (250 MG) 250 MG TABLET PO SCH ×2 (09:00→17:57)
[2023-04-13] MEDS: CHOLECALCIFEROL (VITAMIN D 3) 400 UNIT TABLET PO SCH (09:00)
[2023-04-13] MEDS: FOLIC ACID 1 MG TABLET PO SCH (09:00)
[2023-04-13] MEDS: MULTIVITAMINS,THERAGRAN 1 UDTAB TABLET PO SCH (09:00)
[2023-04-13] MEDS: POLYVINYL ALCOHOL 15 ML BOTTLE EACHEYE SCH ×2 (09:00→17:57)
[2023-04-13] MEDS: THIAMINE HCL 100 MG TABLET PO SCH (09:00)
[2023-04-13] MEDS: HALOPERIDOL 5 MG TABLET PO SCH ×2 (09:00→18:00)
--- NOTE | 2023-04-13 10:33 | NUR ---
MS RN NOTES PT REFUSED ALL MORNING MEDS. ATTEMPTED TO ASK PT MULTIPLE TIMES, BUT GETS AGITATED. PT EDUCATION REINFORCED. HEALTH TEACHINGS PROVIDED.
[2023-04-13 16:00] VITALS: BP 130/73; TEMP 97.6
--- NOTE | 2023-04-13 18:28 | NUR ---
MS RN CLOSING NOTE PATIENT IN BED, AWAKE, ALERT AND ORIENTED WITH CONFUSION. AFEBRILE AND NOT IN ANY FORM OF ACUTE DISTRESS. BREATHING EVEN AND NON LABORED. NO C/O PAIN OR DISCOMFORT AT THIS TIME. SAFETY MEASURES IN PLACE. ALL PM MEDS GIVEN S ORDERED. KEPT BED IN LOCKED AND IN LOW POSITION. SIDE RAILS UP X2. ADVISED TO USE THE CALL LIGHT WHEN IN NEED OF ASSISTANCE. WILL ENDORSE TO NEXT SHIFT.
--- NOTE | 2023-04-13 20:00 | NUR ---
REFUSED TREATMENT Unable to check patient v/s as patient uncooperative, continue refuses care, declined education with length of time.
[2023-04-13] MEDS: QUETIAPINE FUMARATE 100 MG TABLET PO SCH (21:12)
--- NOTE | 2023-04-13 21:12 | NUR ---
REFUSED MEDICATION Patient uncooperative, angry behavior. Refuses due medication Seroquel, declined education.
--- NOTE | 2023-04-14 06:05 | NUR ---
END OF SHIFT REPORT Patient in bed, Alert Oriented x2, easily agitated. Noncompliant with medication. Oxygen sat high 90's in RA. No IV line as patient refused multiple times. No acute events overnight. Treatment and plan explained to patient with length of time, patient declined to listen. Pending DC to [facility], [place]. body trimmer upholsterer time today at 1100am with [facility] transport. Will endorse to oncoming RN.
--- NOTE | 2023-04-14 07:05 | NUR ---
RN OPENING NOTE PATIENT LAYING IN BED ASLEEP EASILY AROUSED, A/OX2 EASILY AGITATED. PT IS COMPLIANT AT THE MOMENT. ON ROOM AIR WITH NO SIGNS OF DISTRESS OR SOB. NO IV PLACEMENT AT THIS TIME DUE TO REFUSAL. POSSIBLE DC TODAY TO [facility] AT 1100. SAFETY MEASURES IN PLACE, BED IN LOWEST POSITION, SIDE RAILS X2, CALL LIGHT WITHIN REACH. WILL CONTINUE TO MONITOR.
--- NOTE | 2023-04-14 07:38 | NUR ---
RN NOTE- ON ASSESSMENT THIS AM, PT NOTED TO HAVE ERYTHEMATOUS RASH TO CHIN, FACE, NECK. NO EXUDATE. PT STATES HE DOESN'T REALLY NOTICE IT. HOWEVER, HE IS ORIENTED TO PERSON ONLY. CONFUSED. WOUND CARE CONSULT ORDERED. IMPRESSION- [id number]
[2023-04-14] MEDS: FAMOTIDINE (20 MG) 20 MG TABLET PO SCH (07:43)
[2023-04-14 08:00] VITALS: BP 132/86; TEMP 97.9
--- NOTE | 2023-04-14 08:01 | NUR ---
WOUND CARE CONSULT: PT SEEN FOR FACIAL SKIN ISSUE WITH REDNESS AND PATCHY AREAS TO FACE AND NECK, UNKNOWN ETIOLOGY. DEFER TO PMD FOR SKIN CONDITION. PER QUILL WORKER, PT HAD FACIAL HAIR UPON ADMISSION AND IS NOW CLEAN SHAVEN.
[2023-04-14] MEDS: FOLIC ACID 1 MG TABLET PO SCH (08:46)
[2023-04-14] MEDS: THIAMINE HCL 100 MG TABLET PO SCH (08:46)
[2023-04-14] MEDS: LEVETIRACETAM (250 MG) 250 MG TABLET PO SCH (08:46)
[2023-04-14] MEDS: CHOLECALCIFEROL (VITAMIN D 3) 400 UNIT TABLET PO SCH (08:47)
[2023-04-14] MEDS: HALOPERIDOL 5 MG TABLET PO SCH (08:47)
[2023-04-14] MEDS: DIVALPROEX SODIUM 500 MG TABLET.DR PO SCH (08:48)
[2023-04-14] MEDS: MULTIVITAMINS,THERAGRAN 1 UDTAB TABLET PO SCH (08:48)
[2023-04-14] MEDS: BENZTROPINE MESYLATE (1 MG) 1 MG TABLET PO SCH (08:48)
[2023-04-14] MEDS: POLYVINYL ALCOHOL 15 ML BOTTLE EACHEYE SCH (09:03)
--- NOTE | 2023-04-14 10:37 | NUR ---
RN NOTE REPORT GIVEN TO ALNI COLEMAN) AT [place].
--- NOTE | 2023-04-14 11:05 | NUR ---
RN DC NOTE PATIENT IS STABLE AT THE MOMENT. REPORT GIVEN TO EMT. PATIENT WAS TAKEN BY [facility] VIA AMBULANCE. WARREN HAIDER AWARE. IV REMOVED AND WRIST BAND REMOVED.
== END 2023-04-14 11:00 | DRG 421 ==
LOC: ER 17:40 → MED 21:07
PROVIDERS: ADMIT Nurse Practitioner Acute Care
DX: R62.7 Adult failure to thrive (principal); G93.41 Metabolic encephalopathy; F03.94 Unspecified dementia, unspecified severity, with anxiety; F29 Unspecified psychosis not due to a substance or known physiological condition; G40.909 Epilepsy, unspecified, not intractable, without status epilepticus; F03.92 Unspecified dementia, unspecified severity, with psychotic disturbance; F03.93 Unspecified dementia, unspecified severity, with mood disturbance; F31.9 Bipolar disorder, unspecified; Z79.899 Other long term (current) drug therapy; Z87.820 Personal history of traumatic brain injury; Z88.0 Allergy status to penicillin; Z91.148 Patient's other noncompliance with medication regimen for other reason; Z91.199 Patient's noncompliance with other medical treatment and regimen due to unspecified reason; F10.11 Alcohol abuse, in remission; Z20.822 Contact with and (suspected) exposure to COVID-19
CPT/HCPCS: 36415; 80048-TC; 80076-TC; 83735-TC; 84100-TC; 84443-TC; 85025-TC; 87081-TC; 97112-TC; 97116-TC; 97530-TC; C9803; G0378; J1630; Q0163